=== PATIENT | female | born 1975 | race Caucasian/White ===

== ENCOUNTER → 2019-01-09 16:03 | Outpatient (CLI) | payer OTHER, SELFPAY ==
[2019-01-09 16:47] LABS: Absolute Neutrophil Count 2.5 X10^3/uL (2.0-7.7); Basophil# 0.01 X10^3/uL; Basophil% 0.2 % (0-1); Eosinophil# 0.45 X10^3/uL; Eosinophils% 9.3 % (0-5); Hematocrit 35.6 % (37-47); Hemoglobin 12.3 g/dl (12.0-15.0); Lymphocyte % 35.2 % (19-41); Mean Corp Hgb Conc 34.6 g/gl (32-36); Mean Corpuscular Hgb 28.5 pg (27.0-32.0); Mean Corpuscular Volume 82.4 fL (81-99); Mean Platelet Vol. 9.4 fl (6.2-12.0); Monocyte# 0.22 X10^3/uL; Monocyte% 4.6 % (0-10); Neutrophil # 2.45 X10^3/uL (2.7-7.7); Neutrophil % 50.7 % (47-70); Platelet Count 185 K/mm3 (150-450); RBC Distribution Width CV 13.1 % (11.6-14.6); RBC Distribution Width SD 39.3 fl (35.1-43.9); Red Blood Count 4.32 M/mm3 (4.2-5.4); White Blood Count 4.8 K/mm3 (4.4-11.0)
[2019-01-09 16:49] LABS: POSITIVE COUNT NO; POSITIVE DIFFERENTIAL NO; POSITIVE MORPHOLOGY NO
[2019-01-09 17:24] LABS: Anion Gap 8 (5-15); BUN 8 mg/dL (7-18); BUN/Creat Ratio 11.1 RATIO (10-20); Calcium,Total 9.3 mg/dL (8.5-10.1); Chloride 108 mmol/L (98-107); Creatinine, Serum 0.72 mg/dL (0.55-1.02); EST Glomerular Filtration Rate 93 mL/min (>60); Est Glom Filt Rate - Afr Amer 113 mL/min (>60); Glucose 89 mg/dL (74-106); Sodium Level 143 mmol/L (136-145); Thyroid Stim Hormone (TSH) 2.68 uIU/mL (0.358-3.74)
== END ==
PROVIDERS: Family Provider Family Medicine; PCP Family Medicine; Visit Provider Family Medicine
DX: I10 Essential (primary) hypertension (principal); F41.0 Panic disorder [episodic paroxysmal anxiety]
CPT/HCPCS: 36415; 80048; 84443; 85025

== ENCOUNTER → 2020-04-15 14:06 | Outpatient (CLI) | payer BC, SELFPAY ==
[2014-10-27 13:09] VITALS: BMI 25.8
[2020-04-15 18:05] LABS: Anion Gap 5 (5-15); BUN 9 mg/dL (7-18); BUN/Creat Ratio 12.8 RATIO (10-20); Calcium,Total 8.8 mg/dL (8.5-10.1); Chloride 106 mmol/L (98-107); EST Glomerular Filtration Rate 96 mL/min (>60); Est Glom Filt Rate - Afr Amer 116 mL/min (>60); Glucose 79 mg/dL (74-106); Potassium 3.2 mmol/L (3.5-5.1); Sodium Level 138 mmol/L (136-145); Thyroid Stim Hormone (TSH) 2.12 uIU/mL (0.358-3.74)
== END ==
PROVIDERS: PCP Family Medicine; Visit Provider Family Medicine
DX: I10 Essential (primary) hypertension (principal)
CPT/HCPCS: 36415; 80048; 84443

== ENCOUNTER → 2021-03-24 16:23 | Outpatient (CLI) | payer BC, SELFPAY | PROVIDERS: PCP Family Medicine; Visit Provider Physician Assistant Surgical | DX: U07.1 COVID-19 (principal) | CPT/HCPCS: 87635; U0005; U0003 ==

== ENCOUNTER → 2022-11-13 | Outpatient (CLI) | payer OTHER, SELFPAY ==
[2022-11-13 12:33] LABS: Absolute Lymphocyte Count 1.57 X10^3/uL (0.83-4.51); Absolute Neutrophil Count 2.6 X10^3/uL (2.0-7.7); Basophil# 0.03 X10^3/uL; Basophil% 0.6 % (0-1); Eosinophil# 0.31 X10^3/uL; Eosinophils% 6.6 % (0-5); Hematocrit 37.8 % (37-47); Hemoglobin 12.4 g/dL (12.0-15.0); Lymphocyte # 1.57 X10^3/ul (0.83-4.51); Lymphocyte % 33.5 % (19-41); Mean Corp Hgb Conc 32.8 g/dL (32-36); Mean Corpuscular Hgb 26.4 pg (27.0-32.0); Mean Corpuscular Volume 80.4 fL (81-99); Mean Platelet Vol. 9.9 fl (6.2-12.0); Monocyte# 0.19 X10^3/uL; Monocyte% 4.1 % (0-10); NRBC Flagged by Analyzer 0 % (0-5); Neutrophil # 2.58 X10^3/uL (2.7-7.7); Platelet Count 216 K/mm3 (150-450); RBC Distribution Width CV 13.6 % (11.6-14.6); RBC Distribution Width SD 39.6 fl (35.1-43.9); White Blood Count 4.7 K/mm3 (4.4-11.0)
[2022-11-13 13:00] LABS: Vitamin D,25 Hydroxy 43.8 ng/mL
[2022-11-13 13:15] LABS: ALB/GLOB Ratio 1.2 RATIO (0.9-2.4); AST(SGOT) 29 U/L (15-37); Alanine Aminotransfer ALT/SGPT 42 U/L (13-56); Albumin, Serum 3.9 g/dL (3.2-5.0); Alkaline Phosphatase 116 U/L (45-117); Anion Gap 5 (5-15); BUN 10 mg/dL (7-18); BUN/Creat Ratio 12.9 RATIO (10-20); Calcium,Total 9.2 mg/dL (8.5-10.1); Chloride 109 mmol/L (98-107); Creatinine, Serum 0.77 mg/dL (0.55-1.02); EST Glomerular Filtration Rate 84 mL/min (>60); Est Glom Filt Rate - Afr Amer 102 mL/min (>60); Globulin 3.3 g/dL (2.2-4.2); Glucose 92 mg/dL (74-106); Potassium 3.6 mmol/L (3.5-5.1); Protein, Total 7.2 g/dL (6.4-8.2); Sodium Level 141 mmol/L (136-145); T4 Free Direct 1.13 ng/dL (0.76-1.46); Thyroid Stim Hormone (TSH) 2.22 uIU/mL (0.358-3.74)
== END | disposition home or self-care (01) ==
LOC: BFHLAB 10:49
PROVIDERS: PCP Nurse Practitioner Family; Referring Provider Nurse Practitioner Family; Visit Provider Nurse Practitioner Family
DX: I10 Essential (primary) hypertension (principal); Z13.29 Encounter for screening for other suspected endocrine disorder; E55.9 Vitamin D deficiency, unspecified
CPT/HCPCS: 36415; 80053; 82306; 84439; 84443; 85025

== ENCOUNTER 2023-01-24 07:48 | Day surgery (SDC) | payer OTHER, SELFPAY ==
--- NOTE | 2023-01-17 10:48 | PCM.HP.BLA ---
History and Physical Date of Admission: 01/24/23 HPI: The patient is a 47 year old female presenting for pre-operative visit. She is scheduled for Hysteroscopy D&C nad polyp resection for thickened endometrium and endometrial polyp on 01/24/23. Procedure discussed along with risks, benefits and complications. Other alternatives discussed for management. Consent form signed? Yes. ? ? PAST MEDICAL HISTORY PAST MEDICAL HISTORY Diagnosis Date ? Congenital hiatus hernia 01/06/2003 ? Dr. [place], [place] ? Elevated blood pressure ? ? Essential hypertension, benign ? Esophageal reflux see hiatal hernia ? Hearing loss ? ? Mainly in Left Ear ? Other forms of migraine age mid 20's ? menstrual ? Panic disorder without agoraphobia see old records ? Anxiety state ? Simple or unspecified chronic serous otitis media 2001 ? see surgical history, tymp tube ? ? PAST SURGICAL HISTORY PAST SURGICAL HISTORY Procedure Laterality Date ? EXTRACTION, ERUPTED TOOTH OR EXPOSED ROOT (ELEVATION AND/OR FORCEPS REMOVAL) ? ? ? wisdom ? [facility], [place] ? RIGHT Myringotomy/tubes ? OOPHORECTOMY PARTIAL/TOTAL UNI/BI ? 11/11/2008 ? Right Oophorectomy Dr. Artis at [facility] ? PAST SURGICAL HISTORY OF ? 2001, same as below ? LEFT mastoidectomy (Dr. Zhong) ? TONSILLECTOMY & ADENOIDECTOMY <AGE 11 ? age 8 ? ? ? CURRENT MEDICATIONS Current Outpatient Medications Medication Sig Dispense Refill ? lisinopril (ZESTRIL) 5 mg tablet Take 5 mg by mouth once daily. ? ? ? mecobalamin (B12 ACTIVE ORAL) Take by mouth once daily. ? ? ? MAGNESIUM GLYCINATE ORAL Take 350 mg by mouth once daily. ? ? ? vronrna-qlvi-tzteh-oreg-capryl 100 mg-150 mg- 50 mg-150 mg cap Take 1 capsule by mouth. ProVitalize ? ? ? Cetirizine (ZYRTEC) 10 mg cap Take 1 capsule by mouth once daily. ? ? ? omeprazole (PRILOSEC) 20 mg capsule TAKE 1 CAPSULE BY MOUTH ONCE DAILY (30 45 MINUTES BEFORE A MEAL OR SNACK) ? ? ? cholecalciferol, vitamin D3, (VITAMIN D3 ORAL) Take by mouth. ? ? ? potassium (POTASSIMIN ORAL) Take by mouth every other day. ? ? ? SUMAtriptan (IMITREX) 100 mg tablet Take 1 tablet by mouth as needed. Take 1 tablet by mouth. one at once. May repeat in 2 hours as needed. 9 tablet 2 ? clonazePAM (KLONOPIN) 0.5 mg tablet Take 1 tablet by mouth at bedtime as needed. 30 tablet 0 ? No current facility-administered medications for this visit. ? ? ALLERGIES: Patient has no known allergies. ? PERSONAL HISTORY: SOCIAL HISTORY Social History ? Tobacco Use ? Smoking status: Never ? Smokeless tobacco: Never Vaping Use ? Vaping Use: Never used Substance Use Topics ? Alcohol use: No ? Drug use: No ? FAMILY HISTORY: FAMILY HISTORY FAMILY HISTORY Problem Relation Age of Onset ? other (ovarian cancer) Mother ? ? mid 40's ? other (Other) Father ? ? Unknown ? Headache Sister ? ? migraine ? No Known Problems Brother ? ? Breast Cancer Maternal Grandmother ? ? age late 60's ? Alcohol/Drug Maternal Grandfather ? ? No Known Problems Daughter ? ? No Known Problems Son ? ? Cervical Cancer Maternal Aunt ? ? Breast Cancer Maternal Aunt ? ? other (Brain Tumor) Maternal Aunt ? ? from this ? ? REVIEW OF SYMPTOMS: GENERAL: denies fevers or chills ENDOCRINOLOGY: has not been on steroids Cardiology : denies palpitations or chest pain Respiratory: denies SOB or cough Hematology: denies history of prolonged bleeding or easy bruising or VTE Allergy: Denies history of personal or family history of allergy to anesthesia ? ? ? PHYSICAL EXAMINATION: ? VITALS: Blood pressure 118/90, pulse 70, height 5' 5 (1.651 m), weight 194 lb (88 kg), last menstrual period 10/13/2022. ? GENERAL: The patient is well nourished, well hydrated in no acute distress. , The patient is oriented to time, place, and person. NECK: Supple. No lynphadenopathy, normal thyroid, no thyromegaly. LUNGS: Clear to auscultation bilaterally. no wheezes, rhonchi or rales HEART: Regular rate and rhythm, Normal heart sounds, and No murmurs or gallops ? Pelvic US 01/07/23 Normal appearing retroverted uterus that measures 75 mm x 37 mm x 44 mm. The central endometrial complex measures 4.6 mm in combined thickness. Endometrial ?pathology cannot be excluded. There is a possible fundal, endometrial polyp noted: Polyp(s): Size 6 mm x 2 mm x 6 mm. Mean 4.7 mm. Broad-based polyp. Fundal The right ovary is surgically absent. There is a left ovarian cyst present. This cyst measures 1.1 cm in size and is mostly simple in appearance, with one avascular solid component/projection that is ?less than 3 mm. There is no free fluid visualized in the peritoneal cavity. ? IMPRESSION: Thickened endometrium, endometrial polyp ? PLAN: The risks/benefits/alternatives and personal involved for the planned hysteroscopy D&C with poilyp resection were reviewed with the patient. Her questions were answered to her satisfaction and she desires to proceed. Consent was signed. I reviewed with her postop instructions and expectations. ? ? I have reviewed and updated past medical and surgical history, medications and allergies Assessment & Plan Assessment/Plan (1) Abnormal uterine bleeding (AUB): (2) Endometrial thickening on ultrasound: (3) Endometrial polyp:
[2023-01-24] VITALS (7 sets, daily range): BP systolic 123–142; BP diastolic 68–79; PULSE 66–80; RESP 16–18; TEMP 35.9–36.8; O2SAT 99–100; BMI 31.3
[2023-01-24 08:41] LABS: Internal QC Validated? YES +Cl - CLEAR BKGD; Pregnancy, Urine Negative Negative
[2023-01-24] MEDS: Acetaminophen 500 MG Tablet 1000 MG PO (08:47)
[2023-01-24] MEDS: Lactated Ringers 1,000 ML 15 ML IV (08:47)
[2023-01-24] MEDS: Ketorolac 30 MG/ML Syringe IV (08:47)
--- NOTE | 2023-01-24 09:45 | EMB_PTH ---
PATIENT: JUNE BECERRA LOC: [facility] U#:[id number] AGE/SX: 47/F ROOM: RE01/24/[address]: Dr. Marissa Burch MD : 1975 BED: DIS: 01/24/2023 SPEC #: [id number] RECD: 01/24/23 15:36 STATUS: SHANIQUA RERosalio #: [id number] JONNY: 01/24/23 09:[address]: Marissa Burch DEPT: SURGICAL PATHOLOGY RECD BY: Terri Ferris ENTERED: 01/25/23 08:40 SP TYPE: ENDOM BX/C OT DR: Farheen Loyola, [place] Tissues: Endometrium, NOS Procedures: Surgery Specimen Level IV HEADER OPERATION: Hysteroscopy, D & C Symphion PRE-OP DIAGNOSIS: Abnormal uterine bleeding, thickened endometrium endometrial polyp TISSUE SUBMITTED: Endometrial curettings MICROSCOPIC DIAGNOSIS Endometrial curettings: Proliferative endometrium. Fragments of myometrium. SJ:hesham 01/28/2023 MICROSCOPIC DESCRIPTION Slides are reviewed. GROSS DESCRIPTION Received in fixative is one container labeled with the patient's name and designated endometrial curettings. The specimen consists of multiple irregular fragments of light cooper tissue measuring in aggregate 3.0 x 1.5 x 0.2cms. The specimen is totally submitted in one cassette. / AM 01/25/2023 TC:4 CPT: 93737
--- NOTE | 2023-01-24 10:53 | OP.PCM_ITS ---
Problems Associated Problem List Diagnoses (1) Endometrial thickening on ultrasound: (2) Abnormal uterine bleeding (AUB): (3) Endometrial polyp: Report of Operation Date of Procedure: 01/24/23 Pre-Operative Diagnosis: aub, endometrial polyp, thickened endometrium on US Post-Operative Diagnosis: same Surgery/Procedure Performed:: hysteroscopy D&C with polyp resection Surgeon: Marissa Burch grocery supervisor: None Type of Anesthesia: MAC/Supplemental/Local Anesthesiologist: Leonides Shine Special Medications: none Specimen's removed: endometrial curettings Drains: none Grafts/Implants Used: none Complications none Admit VTE Documentation VTE Present on Admission: No VTE Mechan Device Prophylaxis: SCD's VTE Pharm Prophylaxis ordered?: No Reason prophylaxis not ordered:: Procedure Not Indicated
--- NOTE | 2023-01-24 10:53 | DCINST_ITS ---
Discharge Instructions Diet Discharge Diet: No restrictions Activity May resume sexual activity in: 1 week Lifting Restrictions: none Dressing / Incision Call your doctor if your incision/area has: Sudden Increased Bleeding and Foul Smelling Discharge Call your doctor if you observe: Fever of 101 or Higher and Using more than 1 pad per hour (for 2 hrs in a row) Follow Up Care Please Follow Up With: Marissa Burch MD When: 2-4 weeks or as needed. Call [phone] to make an appointment or with any concerns. Test Results: Test results from this visit will be discussed in further detail at your follow- up appointment, if applicable. Discharge Plan Admission Primary Reason for Your Visit: Dilation and curettage Attending Provider: Marissa Burch Primary Care Provider: Farheen Loyola Discharge Orders/Prescriptions Prescriptions: No Action sumatriptan succinate [Imitrex] 100 MG tablet 100 mg PO .X1 PRN clonazepam 0.5 MG tablet 0.5 mg PO QHS PRN PRN (Reason: Anxiety) lisinopril 10 MG tablet 20 mg PO DAILY omeprazole 20 mg capsule,delayed release(DR/EC) 20 mg PO DAILY Referrals / Follow Up: Farheen Loyola, [facility] [Primary Care Provider] - Disposition Disposition (needs filled in before D/C Order can be placed): Home, Self Care
--- NOTE | 2023-01-24 10:53 | PCM.OPRPT ---
Problems Associated Problem List Diagnoses (1) Endometrial thickening on ultrasound: (2) Abnormal uterine bleeding (AUB): (3) Endometrial polyp: Report of Operation Date of Procedure: 01/24/23 Pre-Operative Diagnosis: aub, endometrial polyp, thickened endometrium on US Post-Operative Diagnosis: same Surgery/Procedure Performed:: hysteroscopy D&C with polyp resection Description of Surgical Findings:: Normal cervix and vagina, lush endometrium, no discrete uterine cavity pathology Surgeon: Marissa Burch radio repairer: None Type of Anesthesia: MAC/Supplemental/Local Anesthesiologist: Leonides Shine Special Medications: none Specimen's removed: endometrial curettings Drains: none Estimated Blood Loss (mL): 10 Fluids Replaced: 400 Description of Procedure: The patient was taken to the OR where she was prepped and draped in dorsal lithotomy position. The weighted speculum was placed in the vagina and the anterior lip of the cervix was grasped with a single-tooth tenaculum. A paracervical block was administered with 1% lidocaine with 1-100,000 epinephrine solution. The cervix was dilated serially with Hegar dilators. The Symphion hysteroscope was placed into the uterine cavity and the above findings were noted. Bilateral tubal ostia were identified. The resection device was inserted and a visual sharp curettage was done of the uterine cavity. The instruments were removed from the vagina. The specimen was handed off and sent to pathology. All sponge and needle counts were correct. Vaginal sweep was performed by me. The patient was awakened and taken to the recovery room in stable condition. Calculated hysteroscopic fluid deficit 500 cc of normal saline Findings: Endometrial cavity: Lush endometrium, no discrete polyps or fibroid Cervix: Normal Vagina: Normal Grafts/Implants Used: none Procedure Start Time: 11:01 Procedure Stop Time: 11:09 Complications none Admit VTE Documentation VTE Present on Admission: No VTE Mechan Device Prophylaxis: SCD's VTE Pharm Prophylaxis ordered?: No Reason prophylaxis not ordered:: Procedure Not Indicated
[2023-01-24] MEDS: Lidocaine 1% /Epi 1:100 (20ml) 20 ML Vial (11:01)
== END 2023-01-24 12:27 | disposition home or self-care (01) ==
LOC: SDC 08:09 → AC 08:10
PROVIDERS: PCP Nurse Practitioner Family; Referring Provider Obstetrics & Gynecology; Visit Provider Obstetrics & Gynecology
PROC: 0UB98ZZ Excision of Uterus, Via Natural or Artificial Opening Endoscopic (ICD-10-PCS; CPT 58558; principal; 2023-01-24 09:30)
DX: N84.0 Polyp of corpus uteri (principal); N93.9 Abnormal uterine and vaginal bleeding, unspecified; I10 Essential (primary) hypertension; F41.1 Generalized anxiety disorder; G43.909 Migraine, unspecified, not intractable, without status migrainosus; R93.89 Abnormal findings on diagnostic imaging of other specified body structures
CPT/HCPCS: 58558; 00952; 81025; 88305; J7120; J2405

== ENCOUNTER 2025-01-08 08:44 | Day surgery (SDC) | payer OTHER, SELFPAY ==
[2025-01-08] VITALS (9 sets, daily range): BP systolic 84–104; BP diastolic 50–72; PULSE 60–74; RESP 16–20; TEMP 36.4–36.6; O2SAT 97–100; BMI 30.6
[2025-01-08] MEDS: Lactated Ringers 1,000 ML 15 ML IV (09:00)
--- NOTE | 2025-01-08 09:25 | PCM.PRE.AN2 ---
ASA Classification* ASA Classification ASA Classification: 2 Assessment & Plan Anesthesia* Anesthesia Assessment Anesthesia Assessment: Discussed sedation and/or anesthesia options, risks, benefits, and alternatives with patient/parents/legal guardian/POA. Questions invited. The patient/parents/legal guardian/POA seems to understand and agrees to proceed with anesthesia plan. Reviewed the physical assessment, medical history, allergy history and patient home medications list prior to surgery/procedure/anesthetic and documented any changes. Performed airway and anesthesia risk assessments. Anesthesia Type Anesthesia Type: MAC History Source History Obtained from:: Patient and Chart Anesthesia Focused Assessment* Temperature: 97.5 F Pulse Rate: 74 Blood Pressure: 104/55 Respiratory Rate: 18 Pulse Ox: 100 Oxygen Delivery Method: Room Air Airway Assessment Mouth opens: >3 cm Mallampati Score: III Teeth Condition: Caps/Crowns (Patient has a couple crowns. They are tight.) and Missing (Patient several missing teeth. Rest of the teeth are tight.) Neck Range of motion (ROM): Full ROM Labs Anesthesia Preop lab: CBC WBC 4.7 K/mm3 (4.4-11.0) 11/13/22 10:51 11/13/22 RBC 4.70 M/mm3 (4.2-5.4) 11/13/22 10:11/13/22 Hgb 12.4 g/dL (12.0-15.0) 11/13/22 10:11/13/22 Hct 37.8 % (37-47) 11/13/22 10:11/13/22 Plt Count 216 K/mm3 (150-450) 11/13/22 10:11/13/22 CHEMISTRY Potassium 3.6 mmol/L (3.5-5.1) 11/13/22 10:11/13/22 Sodium 141 mmol/L (136-145) 11/13/22 10:11/13/22 BUN 10 mg/dL (7-18) 11/13/22 10:51 11/13/22 Creatinine 0.77 mg/dL (0.55-1.02) 11/13/22 10:11/13/22 Glucose 92 mg/dL (74-106) 11/13/22 10:51 11/13/22 POC Glucose 78 mg/dL (70-110) 10/27/14 13:50 10/27/14 TSH 2.22 uIU/mL (0.358-3.74) 11/13/22 10:51 11/13/22 COAG PT 14.1 SECONDS (11.7-14.9) 10/27/14 13:44 10/27/14 Urine Test Negative Negative 01/24/23 08:29 01/24/23 Pre-Assessment Diagnosis/Proposed Procedure Planned Operative Procedure(s): COLONOSCOPY Anesthesia History 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 When Was Last Pacemaker Check QUESTION #4 FULL TEXT: You/Your Family Experience fever (hyperthermia) with Anesthesia Last Oral Intake Last Oral intake: Last Oral Intake NPO since 23:30 01/08/25 09:05 Meds taken in AM with sips of water? Meds patient instructed to take am of surgery Any additional information?: Yes Meds taken in AM with sips of water?: Yes Meds patient instructed to take am of surgery: Omeprazole PONV PONV - shuttleless loom weaver: PONV - shuttleless loom weaver Female Yes 01/04/25 11:06 HX of Motion Sickness No 01/04/25 11:06 HX of N/V After Surgery No 01/04/25 11:06 Non-Smoker Yes 01/04/25 11:06 Duration of Surgery greater No 01/04/25 11:06 than 60 minutes Number of Risk Factors 2 01/04/25 11:06 PONV Score Moderate Risk 01/04/25 11:06 Height & Weight Height & Weight: Anesthesia: Height & Weight Height 5 ft 6 in 01/08/25 09:05 Weight: 86 kg 01/08/25 09:05 Body Mass Index (BMI) 30.6 01/08/25 09:05 Respiratory Assessment Respiratory Assessment - shuttleless loom weaver: Respiratory Tract Infection Hx - shuttleless loom weaver Hx Respiratory Tract Infection No 01/04/25 11:06 STOP Sleep Apnea STOP Sleep Apnea - shuttleless loom weaver: STOP Sleep Apnea - shuttleless loom weaver Hx Hypertension Yes: PER PT, CONTROLLED ON 01/04/25 11:06 MEDS Hx Sleep Apnea No 01/04/25 11:06 CPAP BIPAP Do you snore loudly (louder No 01/04/25 11:06 than talking or can be heard Do you often feel tired/ No 01/04/25 11:06 fatigued/ sleepy during daytime? Has anyone observed you stop No 01/04/25 11:06 breathing during sleep? STOP Results Negative 01/04/25 11:06 QUESTION #5 FULL TEXT : Do you snore loudly (louder than talking or can be heard through closed doors)? 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 Specify any problems Hx of Preganancy in last 3 No 01/04/25 11:06 Months Nurse Filling Out Transfusion MGRIFFITH 01/04/25 11:06 & Questions: Date: 01/04/25 01/04/25 11:06 Time: 11:08 01/04/25 11:06 Patient unable to answer at this time (ie. confused, unrespo /Reproduction History /Reproductive History - shuttleless loom weaver: /Reproductive Hx- shuttleless loom weaver Hx Now No 01/04/25 11:06 Gestational Age (in weeks): EDC: Hx Hx Para Hx Section SAB No 01/04/25 11:06 Active Medications Active Medications: Current Medications Generic Name Dose Route Start Last Admin Trade Name Freq PRN Reason Stop Dose Admin Lactated Ringer's 1,000 mls @ 15 mls/hr 01/08/25 09:00 01/08/25 09:00 IV 15 mls/hr .Q48H RAJANI Administration PFSH Medical History Loss of hearing Post-menopausal History of ulceration Gastric reflux Non-smoker Anxiety Migraine headache History of hiatal hernia GERD (gastroesophageal reflux disease) Leg cramps Endometrial polyp COVID-19 Hypertension Home Medications ?Medication ?Instructions ?Recorded ?Last Taken ?Type clonazepam 0.5 mg tablet 0.5 mg PO QHS PRN PRN Anxiety 10/27/14 10/26/14 History lisinopril 10 mg tablet 20 mg PO DAILY 10/27/14 01/07/25 History sumatriptan succinate 100 mg 100 mg PO .X1 PRN 10/27/14 10/27/14 History tablet (Imitrex) omeprazole 20 mg capsule,delayed 20 mg PO DAILY 01/17/23 01/08/25 History release berberine chloride 500 mg capsule 500 mg PO DAILY 01/04/25 01/06/25 History cholecalciferol (vitamin D3) 125 125 mcg PO DAILY 01/04/25 01/07/25 History mcg (5,000 unit) tablet (Vitamin D3) cyanocobalamin (B12)-cobamamide 1 bob sublingual DAILY 01/04/25 01/07/25 History 5,000 mcg-100 mcg sublingual lozenge (B12) hydrochlorothiazide 12.5 mg tablet 12.5 mg PO QHS 01/04/25 01/07/25 History potassium chloride 20 mEq oral 20 meq PO DAILY 01/04/25 01/05/25 History packet (Klor-Con) vitamin K2 100 mcg capsule 100 mcg PO DAILY 01/04/25 01/07/25 History zinc acetate 50 mg (zinc) capsule 50 mg PO DAILY 01/04/25 01/07/25 History Allergy/AdvReac Type Severity Reaction Status Date / Time No Known Allergies Allergy Verified 01/08/25 09:04 Family History Other Cancer Surgical History History of myringotomy History of oophorectomy H/O mastoidectomy History of tonsillectomy and adenoidectomy Social History Smoking Status: Never smoker Review of Systems (Anesthesia) ROS Narrative System reviewed and no additional complaints, except as documented.
--- NOTE | 2025-01-08 10:00 | H&P.OPEN ---
HPI - General HPI Narrative JUNE BECERRA, is a 49 F who presents for screening colonoscopy. Patient has never had a colonoscopy in the past. She denies abdominal pain or blood in the stool. She has no family history of colon cancer. [facility] Medical History Loss of hearing Post-menopausal History of ulceration Gastric reflux Non-smoker Anxiety Migraine headache History of hiatal hernia GERD (gastroesophageal reflux disease) Leg cramps Endometrial polyp COVID-19 Hypertension Home Medications ?Medication ?Instructions ?Recorded ?Last Taken ?Type clonazepam 0.5 mg tablet 0.5 mg PO QHS PRN PRN Anxiety 10/27/14 10/26/14 History lisinopril 10 mg tablet 20 mg PO DAILY 10/27/14 01/07/25 History sumatriptan succinate 100 mg 100 mg PO .X1 PRN 10/27/14 10/27/14 History tablet (Imitrex) omeprazole 20 mg capsule,delayed 20 mg PO DAILY 01/17/23 01/08/25 History release berberine chloride 500 mg capsule 500 mg PO DAILY 01/04/25 01/06/25 History cholecalciferol (vitamin D3) 125 125 mcg PO DAILY 01/04/25 01/07/25 History mcg (5,000 unit) tablet (Vitamin D3) cyanocobalamin (B12)-cobamamide 1 bob sublingual DAILY 01/04/25 01/07/25 History 5,000 mcg-100 mcg sublingual lozenge (B12) hydrochlorothiazide 12.5 mg tablet 12.5 mg PO QHS 01/04/25 01/07/25 History potassium chloride 20 mEq oral 20 meq PO DAILY 01/04/25 01/05/25 History packet (Klor-Con) vitamin K2 100 mcg capsule 100 mcg PO DAILY 01/04/25 01/07/25 History zinc acetate 50 mg (zinc) capsule 50 mg PO DAILY 01/04/25 01/07/25 History Allergy/AdvReac Type Severity Reaction Status Date / Time No Known Allergies Allergy Verified 01/08/25 09:04 Family History Other Cancer Surgical History History of myringotomy History of oophorectomy H/O mastoidectomy History of tonsillectomy and adenoidectomy Social History Smoking Status: Never smoker Past Medical/Surgical History Planned Operation Planned Operative Procedure(s): COLONOSCOPY Previous Hospitalizations/Surgeries HX Hospitalizations: No Any Problems With Anesthesia: No You/Your Family Experience Fever (Hyperthermia) With Anes: No Cholinesterase deficiency: No Cardiovascular Hx of Irregular Heartbeat and/or Afib: No Hx Heart Attack: No Hx Congestive Heart Failure: No Hx Hypertension: Yes (PER PT, CONTROLLED ON MEDS) Hx Pacemaker: No Respiratory Hx Chronic Obstructive Pulmonary Disease (COPD): No Hx Asthma: No Hx Emphysema: No Hx Sleep Apnea: No Hx Respiratory Tract Infection/Cold (presently): No Do You Snore Loudly (louder than talking or can be heard): No Do You Often Feel Tired/ Fatigued/ Sleepy Dring Daytime?: No Has Anyone Observed You Stop Breathing During Sleep?: No Result (for STOP score): Negative Smoking Status: Never smoker Gastrointestinal Hx Ulcer: No Difficulty Chewing/Swallowing: No Neurological Hx Seizures: No Hx Head/Neck Injury: No Hx Headaches: No Hx Back Injury/Pain: No Does patient have nerve stimulator: No Reproduction : No Psycho/Social Hx Anxiety: Yes Miscellaneous Recent Exposure to Contagious Disease: No Allergies No Known Allergies Allergy (Verified 01/08/25 09:04) Discharge Is Pt Admitted From a Custodial, or a Longterm: No Who Could Help: After D/C, Where Do you Plan to Go: Return Home Vital Signs Vital Signs Vital Signs: 01/08/25 09:05 01/08/25 09:05 01/08/25 09:30 Temperature 97.5 F L 97.5 F L Temperature Source Temporal Pulse Rate 74 74 Respiratory Rate 18 18 Respiratory Pattern Normal Blood Pressure 104/55 L 104/55 L Blood Pressure Mean 71 Blood Pressure Source Monitor Blood Pressure Position Semi-Fowlers Blood Pressure Location Left Arm Pulse Ox 100 100 Oxygen Delivery Method Room Air Room Air Weight Weight: 189 lb 9.561 oz Body Mass Index (BMI) 30.6 Physical Exam Const alert and oriented x3 HEENT normocephalic Eyes PERRL Resp normal respiratory effort and normal air movement Cardio regular rate and regular rhythm GI soft to palpation, non-tender and non-distended Extremity normal to inspection Assessment & Plan Assessment/Plan (1) Screen for colon cancer: PLAN: I explained endoscopy in detail to the patient. I explained the risks including but not limited to stroke or heart attack with anesthesia, perforation of the GI tract, bleeding, infection. I explained that any of these could necessitate further emergency surgery. The patient understands and all questions were answered sufficiently. The patient wishes to proceed with procedure. Chapo Summers MD Pager: [facility] [address] [place] [address], [address] [place] [address] Office: Surgery Risks - Colonoscopy Risks Include but are not Limited To: Risks include but are not limited to: Bleeding, perforation requiring further surgery, inability to complete colonoscopy requiring barium enema.
--- NOTE | 2025-01-08 10:24 | OP.COLON_ITS ---
Patient Name: Tammy Dang Procedure Date: 01/08/2025 10:02 AM Date of : 1975 Age: 49 Procedure: Colonoscopy Indications: Screening for colorectal malignant neoplasm Providers: Chapo Summers MD Referring MD: Yvonne Cárdenas Medicines: Propofol per Anesthesia Patient Profile: This is a 49 year old female. Refer to note in patient chart for documentation of history and physical. Last Colonoscopy: none. The patient's first colonoscopy is today. Complications: No immediate complications. Procedure: Pre-Anesthesia Assessment: - Prior to the procedure, a History and Physical was performed, and patient medications and allergies were reviewed. The patient's tolerance of previous anesthesia was also reviewed. The risks and benefits of the procedure and the sedation options and risks were discussed with the patient. All questions were answered, and informed consent was obtained. Prior Anticoagulants: The patient has taken no anticoagulant or antiplatelet agents. ASA Grade Assessment: II - A patient with mild systemic disease. After reviewing the risks and benefits, the patient was deemed in satisfactory condition to undergo the procedure. After I obtained informed consent, the scope was passed under direct vision. Throughout the procedure, the patient's blood pressure, pulse, and oxygen saturations were monitored continuously. The colonoscope was introduced through the anus and advanced to the cecum, identified by appendiceal orifice and ileocecal valve. The colonoscopy was performed without difficulty. The patient tolerated the procedure well. The quality of the bowel preparation was good. The ileocecal valve, appendiceal orifice, and rectum were photographed. Scope In: 10:11:30 AM Scope Withdrawal Time 0 hours 6 minutes 14 seconds Scope Out: 10:21:26 AM Total Procedure Duration Time 0 hours 9 minutes 56 seconds Findings: The entire examined colon appeared normal on direct and retroflexion views. Impression: - The entire examined colon is normal on direct and retroflexion views. - No specimens collected. Recommendation: - Discharge patient to home. - Resume previous diet. - Continue present medications. - Repeat colonoscopy in 10 years for screening purposes. Procedure Code(s): --- Professional --- 18894, Colonoscopy, flexible; diagnostic, including collection of specimen(s) by brushing or washing, when performed (separate procedure) Diagnosis Code(s): --- Professional --- Z12.11, Encounter for screening for malignant neoplasm of colon CPT copyright 2021 [employer]. All rights reserved. The codes documented in this report are preliminary and upon inpatient coder review may be revised to meet current compliance requirements. Chapo Summers MD 01/08/2025 10:23:46 AM This report has been signed electronically. Number of Addenda: 0 Note Initiated On: 01/08/2025 10:02 AM
--- NOTE | 2025-01-08 10:24 | OP.CCLET_ITS ---
01/08/2025 Yvonne Cárdenas Re : Colonoscopy procedure for Tammy Dang Dear Nir This procedure was performed on Wednesday, January 08, 2025. My impressions and recommendations are as follows: Impressions : - The entire examined colon is normal on direct and retroflexion views. - No specimens collected. Recommendations : - Discharge patient to home. - Resume previous diet. - Continue present medications. - Repeat colonoscopy in 10 years for screening purposes. My findings are described in the full procedure note, which is enclosed. If I can be of further assistance, please feel free to contact me at Doctor phone number(s): , Work: . Sincerely, Chapo Summers MD 01/08/2025 10:23:46 AM This report has been signed electronically.
--- NOTE | 2025-01-08 10:27 | PCM.POST.ANE ---
Anesthesia: Postop Eval I Current Vital Signs Temperature: 97.8 F Pulse Rate: 73 Blood Pressure: 99/72 Respiratory Rate: 20 Pulse Ox: 99 Assessment Airway patent: Yes Spontaneous unlabored respirations: Yes nausea: No Vomiting: No Anesthesia Complication: No Fluid Hydration Crystalloid volume administer (ml): 500 Total IV fluid infused: 500 Progress Note Anesthesia document: Postop Eval 1 completed: Yes
--- NOTE | 2025-01-08 10:53 | POSTOPAN2_ITS ---
Anesthesia Postop Eval I Sum Postop Eval Completion status Anesthesia document: Postop Eval 1 completed: Yes Anesthesia Postop Eval I Summary Anesthesia Postop Eval I Summary: Anesthesia Postop Eval I: Assessment Summary Airway patent Yes 01/08/25 10:27 [email or web address] Spontaneous unlabored Yes 01/08/25 10:27 [email or web address] respirations Mental status nausea No 01/08/25 10:27 [email or web address] Vomiting No 01/08/25 10:27 [email or web address] Anesthesia Postop Eval I: Fluid Summary Crystalloid volume administer 500 01/08/25 10:27 [email or web address] (ml) Colloids volume administered ( ml) Blood Product volume administered (ml) Total IV fluid infused 500 01/08/25 10:27 [email or web address] Anesthesia Postop Eval I: Summary Notes Anesthesia Complication No 01/08/25 10:27 [email or web address] Anesthesia Complication Comment: Post-operative progress note Anesthesia: Postop Eval II Evaluation Mental status: Awake Pain Level: 0 nausea: No Vomiting: No
--- NOTE | 2025-01-08 10:53 | PCM.POSTANE2 ---
Anesthesia Postop Eval I Sum Postop Eval Completion status Anesthesia document: Postop Eval 1 completed: Yes Anesthesia Postop Eval I Summary Anesthesia Postop Eval I Summary: Anesthesia Postop Eval I: Assessment Summary Airway patent Yes 01/08/25 10:27 [email or web address] Spontaneous unlabored Yes 01/08/25 10:27 [email or web address] [email or web address] respirations Mental status nausea No 01/08/25 10:27 [email or web address] [email or web address] Vomiting No 01/08/25 10:27 [email or web address] [email or web address] Anesthesia Postop Eval I: Fluid Summary Crystalloid volume administer 500 01/08/25 10:27 [email or web address] (ml) Colloids volume administered ( ml) Blood Product volume administered (ml) Total IV fluid infused 500 01/08/25 10:27 [email or web address] [email or web address] Anesthesia Postop Eval I: Summary Notes Anesthesia Complication No 01/08/25 10:27 [email or web address] [email or web address] Anesthesia Complication Comment: Post-operative progress note Anesthesia: Postop Eval II Evaluation Mental status: Awake Pain Level: 0 nausea: No Vomiting: No
--- OUTSIDE RECORDS SUMMARY | 2025-01-08 12:27 | XMS RPT_ITS | CCD ---
Author Organization [facility] Care Team Providers Care Rooming House Keeper Name Role Phone Chapo Artis Unavailable Unavailable Shayne ANGULO, Harry Florez Primary Care Provider Shayne ANGULO, Harry Florez Primary Care Provider TIANNA KO Referring Unavailable SHAYNE, HARRY FLOREZ Primary Care Unavailable TIANNA KO Referring Unavailable SHAYNE, HARRY FLOREZ Primary Care Unavailable TIANNA KO Attending Unavailable TIANNA KO Referring Unavailable SHAYNE, HARRY FLOREZ Primary Care Unavailable TIANNA KO Referring Unavailable SHAYNE, HARRY FLOREZ Primary Care Unavailable Chapo Summers Attending Unavailable Farheen Loyola Referring Unavailable Nir, Farheen Primary Care Unavailable Nir SEQUENCING MACHINE OPERATOR-C, Farheen Primary Care Provider [phone] Nir SEQUENCING MACHINE OPERATOR-C, Farheen Referring Provider [phone] Dr. Chapo Summers MD Attending Provider Dr. Chapo Summers MD Other Provider [phone] Medications Current Medications Medication Drug Class(es) Dates Sig (Normalized) Sig (Original) ASHWAGANDHA EXTRACT ORAL (3 sources) ASHWAGANDHA EXTR ACT ORAL Take by mouth once daily. 0 Active Berberine Chloride 500 mg capsule (1 source) Start: 01-05-20 25 take 1 capsule by mouth once daily Berberine Chloride 500 mg capsule Active 500 mg PO DAILY January 04, 2025 12:00am cetirizine hydrochloride 10 mg oral capsule (5 sources) Histamine-1 Receptor Antagonist take 1 capsule by mouth once daily Cetirizine (ZYRTEC) 10 mg cap Take 1 capsule by mouth once daily. 0 Active Comment on above: Take 1 capsule by [facility] once daily. cholecalciferol 0.125 mg oral tablet (1 source) Vitamin D Start: 01-05-20 25 take 1 tablet by mouth once daily Cholecalciferol (Vitamin D3) (Vitamin D3) 125 mcg (5,000 unit) tablet Active 125 ug PO DAILY January 04, 2025 12:00am cholecalciferol, vitamin D3, (VITAMIN D3 ORAL) (10 sources) cholecalciferol, vitamin D3, (VITAMIN D3 ORAL) Take by mouth. 0 Active Comment on above: Take by mouth. clonazePAM 0.5 mg oral tablet (12 sources) Benzodiazepine Start: 10-28-19 take 1 tablet by mouth at bedtime as needed for anxiety Clonazepam 0.5 MG tablet Active 0.5 mg PO AT BEDTIME NEEDED as needed for Anxiety October 27, 2014 12:00am Comment on above: Take 1 tablet by bolivar at bedtime as needed. cobamamide 0.1 mg / vitamin b12 5 mg sublingual tablet (1 source) Vitamin B12 Start: 01-05-20 Cyanocobalamin-Cobamam nima (B12) 5,000-100 mcg lozenge Active 1 NMA SL DAILY January 04, 2025 12:00am hydroCHLOROthiazide 12.5 mg oral tablet (1 source) Thiazide Diuretic Start: 01-05-20 take 1 tablet by mouth at bedtime Hydrochlorothiazide 12.5 mg tablet Active 12.5 mg PO AT BEDTIME January 04, 2025 12:00am lisinopril 20 mg oral tablet (9 sources) Angiotensin Converting Enzyme Inhibitor Start: 10-07-19 take 5 mg by mouth once daily lisinopril (ZESTRIL) 20 mg tablet Take 5 mg by mouth once daily. 0 10/06/2022 Active Start: 10-06-2022 take 1 tablet by bolivar once daily lisinopril (ZESTRIL) 5 mg tablet Take 5 mg by mouth once daily. 0 10/06/2022 Active Start: 01-17-2016 End: 12-28-2022 take 1 tablet by mouth once daily lisinopril (PRINIVIL) 10 mg tablet Take 1 tablet by mouth once daily. 90 tablet 3 01/17/2016 12/28/2022 Discontinued (Course of therapy completed) Start: 10-27-2014 take 2 tablets by mo [facility] once daily Lisinopril 10 MG tablet Active 20 mg PO DAILY October 27, 2014 12:00am Start: 10-27-2014 take 10 mg by mouth twice elizabeth y Lisinopril Active 10 MG PO TWICE A DAY October 27, 2014 12:00am Comment on above: Take 1 tablet by bolivar th once daily. Take 5 mg by mouth o nce daily. Magnesium glycinate (5 sources) take 350 mg by mouth once daily MAGNESIUM GLYCINATE ORAL Take 350 mg by mouth once daily. 0 Active Comment on above: Take 350 mg by mouth once daily. mecobalamin (5 sources) mecobalamin (B12 ACTIVE ORAL) Take by mouth once daily. 0 Active Comment on above: Take by mouth once d aily. omeprazole 20 mg delayed release oral capsule (11 sources) Proton Pump Inhibitor Start: 0 take 1 capsule by mouth once daily Omeprazole 20 mg capsule,delayed release(DR/EC) Active 20 mg PO DAILY January 17, 2023 12:00am Comment on above: TAKE 1 CAPSULE BY MO UT ONCE DAILY (30 45 MINUTES BEFORE A MEAL OR SNACK) Potassium (10 sources) potassium (POTASSIMIN ORAL) Take by mouth every other day. 0 Active potassium (POTAS JENNIFER ORAL) Take by mouth. 0 Active Comment on above: Take by mouth. Take by mouth every other day. potassium chloride 20 meq powder for oral solution (1 source) Start: 5 take 20 mEq by mouth once daily Potassium Chloride (Klor-Con) 20 mEq packet Active 20 meq PO DAILY January 04, 2025 12:00am raNITIdine 150 mg oral tablet (1 source) Histamine-2 Receptor Antagonist Start: 5 take 1 tablet by mouth twice daily Ranitidine (Zantac) 150 MG tablet Active 150 MG PO TWICE A DAY October 27, 2014 12:00am SUMAtriptan 100 mg oral tablet (12 sources) Serotonin-1b and Serotonin-1d Receptor Agonist Start: 5 Sumatriptan Succinate (Imitrex) 100 MG tablet Active 100 mg PO .X1 PRN October 27, 2014 12:00am Comment on above: Take 1 tablet by bolivar th as needed. Take 1 tablet by mouth. one at once. May repeat in 2 hours as needed. vitamin k2 0.1 mg oral capsule (1 source) Start: 5 Vitamin K2 100 mcg capsule Active 100 ug PO DAILY January 04, 2025 12:00am VITAMIN K2 ORAL (3 sources) VITAMIN K2 ORAL Take by mouth once daily. 0 Active zinc acetate 50 mg oral capsule (1 source) Start: take 1 capsule by mouth once daily Zinc Acetate 50 mg (zinc) capsule Active 50 mg PO DAILY January 04, 2025 12:00am Completed/Discontinued Medications Medication Drug Class(es) Dates Sig (Normalized) Sig (Original) ullyojt-ixde-qgluw- oreg-capryl 100 mg-150 mg- 50 mg-150 mg cap (3 sources) End: 01-17-2024 bmidigf-zfve-cqfng-o reg-capryl 100 mg-150 mg- 50 mg-150 mg cap Take 1 capsule by mouth. ProVitalize 0 01/17/2024 Discontinued (Course of therapy completed) jidpyor-yshq-ewj lw-krgw-vrqxgv 100 mg-150 mg- 50 mg-150 mg cap Take 1 capsule by mouth. ProVitalize 0 Active Comment on above: Take 1 capsule by mo uth. ProVitalize Problems Active Problems Problem Classification Problem Date Documented Date Episodic/Chronic Anxiety disorders (20 sources) Anxiety state; Translations: [Generalized anxiety disorder] Onset: 09-26-2006 12-04-2010 Chronic Digestive congenital anomalies (10 sources) Congenital hiatus hernia; Translations: [Congenital hiatus hernia] 12-04-2010 Chronic Disorders of lipid metabolism (10 sources) Hyperlipidemia; Translations: [Hyperlipidemia, unspecified] Onset: 03-08-2008 12-04-2010 Chronic Esophageal disorders (10 sources) Gastroesophageal reflux disease; Translations: [Gastro-esophageal reflux disease without esophagitis] 12-04-2010 Chronic Essential hypertension (10 sources) Benign essential hypertension; Translations: [Essential (primary) hypertension] Onset: 07-22-2009 07-10-2021 Chronic Fever of unknown origin (1 source) Fever; Translations: [Fever, unspecified] 03-24-2021 Episodic Headache; including migraine (19 sources) Migraine; Translations: [Other forms of migraine] Onset: 09-01-2008 Resolved: 01-17-2023 12-04-2010 Chronic Menopausal disorders (3 sources) Postmenopausal bleeding; Translations: [Postmenopausal bleeding] Chronic Nonmalignant breast conditions (3 sources) Breast finding ; Translations: [Dense breast tissue] Onset: 02-25-2024 01-17-2024 Episodic Other female genital disorders (1 source) Polyp of corpus uteri; Translations: [Polyp of corpus uteri] 01-25-2023 Episodic Other female genital disorders (1 source) Polyp of corpus uteri; Translations: [Polyp of corpus uteri] 02-01-2023 Episodic Other screening for suspected conditions (not mental disorders or infectious disease) (1 source) Endometrium thickened; Translations: [Abnormal findings on diagnostic imaging of other specified body structures] 01-25-2023 Chronic Other screening for suspected conditions (not mental disorders or infectious disease) (8 sources) Patient encounter status; Translations: [Encounter for screening mammogram for malignant neoplasm of breast] Onset: 01-17-2024 Episodic Otitis media and related conditions (19 sources) Chronic serous otitis media; Translations: [Chronic serous otitis media] Onset: 09-26-2006 Resolved: 01-17-2023 12-04-2010 Chronic Residual codes; unclassified (6 sources) Family history of breast cancer; Translations: [Family history of malignant neoplasm of breast] Onset: 01-17-2024 Episodic Residual codes; unclassified (6 sources) Family history of malignant neoplasm of ovary; Translations: [Family history of malignant neoplasm of ovary] Onset: 01-17-2024 Episodic Residual codes; unclassified (1 source) Postmenopausal state; Translations: [Asymptomatic menopausal state] 01-17-2024 Episodic Unclassified (1 source) Dense breast tissue; Translations: [Dense breast tissue] Onset: 01-17-2024 Viral infection (2 sources) Disease caused by 2019-nCoV; Translations: [COVID-19] 03-24-2021 Episodic Past or Other Problems Problem Classification Problem Date Documented Date Episodic/Chronic Abdominal hernia (9 sources) Diaphragmatic hernia; Translations: [Diaphragmatic hernia without obstruction or gangrene] Onset: 09-26-2006 Resolved: 01-17-2023 12-04-2010 Episodic Other female genital disorders (9 sources) 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; Translations: [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, unspecified side] Onset: 09-03-2008 Resolved: 01-17-2023 12-04-2010 Episodic Ovarian cyst (1 source) Unspecified ovarian cyst, left side; Translations: [Cyst of left ovary] Onset: 07-12-2023 Episodic Results Test Name Value Interpretation Reference Range Facility [facility] US BREAST LTD LTon 02-24 [facility] US BREAST LTD LT * * *Final Report* * * DATE OF EXAM: Feb 25 2024 2:32PM [id number] - [facility] US BREAST LTD LT / PROCEDURE REASON: Mass of left breast, unspecified quadrant * * * * Physician Interpretation * * * * #[id number] - [facility] US BREAST LTD LT LIMITED ULTRASOUND OF LEFT BREAST: 02/25/2024 HISTORY: Mass Of Left Breast, Unspecified Quadrant. RESULT: No prior exams were available for comparison. Color flow and real-time ultrasound of the left breast 1 o'clock region were performed. Sequeira scale images of the real-time examination were reviewed. There is a benign 1.1 cm x 0.6 cm x 0.8 cm oval cyst in the left axillary tail. This oval cyst is anechoic. This correlates with mammography findings. Color flow imaging demonstrates that there is no vascularity present. IMPRESSION: BENIGN There is no sonographic evidence of malignancy. The 1.1 cm x 0.6 cm x 0.8 cm oval cyst is consistent with a simple cyst and is benign. Return to annual mammogram screening schedule is recommended. Verónica mayo/remedios:02/25/2024 14:40:58 Floor Finisher Helper(s): Tianna Geronimo [facility] Ultrasound BI-RADS: Category 2: Benign Multiple national specialty organizations have released breast cancer screening guidelines for women at average risk for developing breast cancer - guidelines that are based on both evidence and opinion, yet differ on when to start and how often to screen for breast cancer. With representation from Breast Imaging, Internal Medicine, Women's Health, Family Medicine, and Medical/Surgical Oncology, the [facility] has carefully reviewed the data and reached the following consensus: 1) All women should engage in shared decision-making with their providers to decide when to start and how often to screen; 2) All women should have the opportunity to start screening mammography at age 40; 3) For women ages 45-55, we recommend annual screening mammograms; 4) For women ages 55 and over, we support both the transition from an annual to a biennial interval if this aligns more with patient's values and preferences, or continuation with annual screening; 5) All women should discuss with their providers when to stop screening mammograms. Shift Lab Technician: Remedios Transcribe Date/Time: Feb 25 2024 2:22P Dictated by : VERÓNICA MARTÍNEZ MD This examination was interpreted and the report reviewed and electronically signed by: VERÓNICA MARTÍNEZ MD on Feb 25 2024 2:40PM EST [id number] Normal [facility] Breast - left limitedon 0 02-25-2024 IMPRESSION: BENIGN There is no sonographic evidence of malignancy. The 1.1 cm x 0.6 cm x 0.8 cm oval cyst is consistent with a simple cyst and is benign. Return to annual mammogram screening schedule is recommended. Verónica mayo/remedios:02/25/2024 14:40:58 Floor Finisher Helper(s): Tianna Geronimo [facility] Ultrasound BI-RADS: Category 2: Benign Multiple national specialty organizations have released breast cancer screening guidelines for women at average risk for developing breast cancer - guidelines that are based on both evidence and opinion, yet differ on when to start and how often to screen for breast cancer. With representation from Breast Imaging, Internal Medicine, Women's Health, Family Medicine, and Medical/Surgical Oncology, the [facility] has carefully reviewed the data and reached the following consensus: 1) All women should engage in shared decision-making with their providers to decide when to start and how often to screen; 2) All women should have the opportunity to start screening mammography at age 40; 3) For women ages 45-55, we recommend annual screening mammograms; 4) For women ages 55 and over, we support both the transition from an annual to a biennial interval if this aligns more with patient's values and preferences, or continuation with annual screening; 5) All women should discuss with their providers when to stop screening mammograms. Shift Lab Technician: Remedios Transcribe Date/Time: Feb 25 2024 2:22P Dictated by : VERÓNICA MARTÍNEZ MD This examination was interpreted and the report reviewed and electronically signed by: VERÓNICA MARTÍNEZ MD on Feb 25 2024 2:40PM EST DIVISION OF RADIOLOGY * * *Final Report* * * DATE OF EXAM: Feb 25 2024 2:32PM [id number] - [facility] BREAST LTD LT / PROCEDURE REASON: Mass of left breast, unspecified quadrant * * * * Physician Interpretation * * * * #[id number] - [facility] LIMITED ULTRASOUND OF LEFT BREAST: 02/25/2024 HISTORY: Mass Of Left Breast, Unspecified Quadrant. RESULT: No prior exams were available for comparison. Color flow and real-time ultrasound of the left breast 1 o'clock region were performed. Sequeira scale images of the real-time examination were reviewed. There is a benign 1.1 cm x 0.6 cm x 0.8 cm oval cyst in the left axillary tail. This oval cyst is anechoic. This correlates with mammography findings. Color flow imaging demonstrates that there is no vascularity present. DIVISION OF RADIOLOGY Provider, [facility] [place] - 02/25/2024 * * *Final Report* * * DATE OF EXAM: Feb 25 2024 2:32PM [id number] - [facility] BREAST [facility] / PROCEDURE REASON: Mass of left breast, unspecified quadrant * * * * Physician Interpretation * * * * #[id number] - [facility] LIMITED ULTRASOUND OF LEFT BREAST: 02/25/2024 HISTORY: Mass Of Left Breast, Unspecified Quadrant. RESULT: No prior exams were available for comparison. Color flow and real-time ultrasound of the left breast 1 o'clock region were performed. Sequeira scale images of the real-time examination were reviewed. There is a benign 1.1 cm x 0.6 cm x 0.8 cm oval cyst in the left axillary tail. This oval cyst is anechoic. This correlates with mammography findings. Color flow imaging demonstrates that there is no vascularity present. IMPRESSION IMPRESSION: BENIGN There is no sonographic evidence of malignancy. The 1.1 cm x 0.6 cm x 0.8 cm oval cyst is consistent with a simple cyst and is benign. Return to annual mammogram screening schedule is recommended. Verónica mayo/remedios:02/25/2024 14:40:58 Floor Finisher Helper(s): Tianna Geronimo [facility] Ultrasound BI-RADS: Category 2: Benign Multiple national specialty organizations have released breast cancer screening guidelines for women at average risk for developing breast cancer - guidelines that are based on both evidence and opinion, yet differ on when to start and how often to screen for breast cancer. With representation from Breast Imaging, Internal Medicine, Women's Health, Family Medicine, and Medical/Surgical Oncology, the [facility] has carefully reviewed the data and reached the following consensus: 1) All women should engage in shared decision-making with their providers to decide when to start and how often to screen; 2) All women should have the opportunity to start screening mammography at age 40; 3) For women ages 45-55, we recommend annual screening mammograms; 4) For women ages 55 and over, we support both the transition from an annual to a biennial interval if this aligns more with patient's values and preferences, or continuation with annual screening; 5) All women should discuss with their providers when to stop screening mammograms. Shift Lab Technician: Remedios Transcribe Date/Time: Feb 25 2024 2:22P Dictated by : VERÓNICA MARTÍNEZ MD This examination was interpreted and the report reviewed and electronically signed by: VERÓNICA MARTÍNEZ MD on Feb 25 2024 2:40PM EST [facility] Radiology Study observation (narrative) [facility] US Breast - left limitedOrde red By: [facility] Provider on 02-25-2024 [facility] CNCOon 01-20-2024 CNCO HNO ID: [id number] Author: COORDINATOR, MAMMOGRAPHY, ? Service: ? Author Type: Physician Type: Letter Filed: 01/20/2024 16:39 Note Text: January 20, 2024 PID: [id number] June Becerra [address] [place] [address] Dear Ms. Becerra, Your recent breast imaging exam on 01/17/2024 showed a possible finding that requires additional imaging studies for a complete evaluation. Most such findings are probably benign (not cancer). If you have a healthcare provider who ordered/prescribed your screening mammogram: Please call [phone] or [phone] to schedule an appointment for your additional imaging (if you have not already done so). If you DO NOT have a healthcare provider (ie you did not have an order/prescription for your screening mammogram): Please call to schedule an appointment for your additional imaging (if you have not already done so). You must have an order/prescription from your physician when calling to schedule your appointment. If your order/prescription is not electronic, you must bring the hard copy with you on the day of your exam to avoid delays. Your imaging studies and reports are kept on file at [facility] as part of your permanent medical record, and are available for your continuing care. Thank you for allowing us to help in meeting your health care needs. Sincerely, Dr. Arzate Interpreting Radiologist [facility] (Additional imaging) Normal [facility] CNOVon 01-17-2024 CNOV Office Visit (OBGYWM) ---- JUNE BECERRA ([id number]) 1975 F Date Time Provider Department 01/17/24 3:30 PM TIANNA KO OBGYWM During your visit today, we recorded the following information about you: Blood pressure Weight Height 122/78 90.3 kg 1.676 m Tianna Ko APRN.CNM 01/17/2024 4:05 PM Signed June is a 48 year old who presents for an annual gynecologic exam without complaints. Menses: postmenopausal, LMP 10/2022 Patient underwent hysteroscopy DANDC for endometrial thickening, abnormal uterine bleeding is suspected endometrial polyp. No discrete polyp noted on exam. Visual DANDC completed. Pathology negative Contraception: none-vasectomy, postmenopausal HPV vaccine: N/A Last Pap: 07/13/2020 normal HPV: 07/11/2020 negative History of abnormal pap: No Last mammogram:12/28/2022 , 01/17/2024 Sexually active: Yes Time with current partner: 31 years Pain with intercourse: No Postcoital bleeding: No Hot flashes: Yes, Ashwaganda supplement and working Night sweats: No Vaginal dryness: Yes, using KY jelly and this is working Mood swings: No Insomnia: No Exercise: Walking Diet: Regular diet Seatbelt use: Yes OB History T0 L2 SAB0 IAB0 Ectopic0 Multiple0 Live Births0 Station Operator History LMP: 10/13/2022 (Approximate), Having periods Age at Menarche: Age at First : Age at Menopause: Station Operator History Comments: Sexual Activity: Yes; Male Contraception: Vasectomy PAST MEDICAL HISTORY Diagnosis Date 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 Sam, [place] Elevated blood pressure Essential hypertension, benign Esophageal reflux see hiatal hernia Hearing loss Mainly in Left Ear Other forms of migraine age mid 20's menstrual Panic disorder without agoraphobia see old records Anxiety state Simple or unspecified chronic serous otitis media 2001 see surgical history, tymp tube PAST SURGICAL HISTORY Procedure Laterality Date EXTRACTION, ERUPTED TOOTH OR EXPOSED ROOT (ELEVATION AND/OR FORCEPS REMOVAL) wisdom HYSTEROSCOPY BX ENDOMETRIUMAND/POLY PC W/WO DANDC 01/24/2023 hysteroscopy [facility] for [facility]UB MYRINGOTOMY ASPIRAND/EUSTACHIAN TUBE [facility] 2001, Karrie RIGHT Myringotomy/tubes OOPHORECTOMY PARTIAL/TOTAL UNI/BI 11/11/[address] Artis at [facility] PAST SURGICAL HISTORY OF 2001, same as below LEFT mastoidectomy (Dr. Zhong) TONSILLECTOMY AND ADENOIDECTOMY FAMILY HISTORY Problem Relation Age of Onset other (ovarian cancer) Mother mid 40's other (Other) Father Unknown Headache Sister migraine No Known Problems Brother Breast Cancer Maternal Grandmother age late 60's Alcohol/Drug Maternal Grandfather No Known Problems Daughter No Known Problems Son Cervical Cancer Maternal Aunt Breast Cancer Maternal Aunt other (Brain Tumor) Maternal Aunt from this SOCIAL HISTORY Social History Tobacco Use Smoking status: Never Smokeless tobacco: Never Vaping Use Vaping Use: Never used Substance Use Topics Alcohol use: No Drug use: No REVIEW OF SYSTEMS Abdomen: No abdominal pain, nausea, vomiting, diarrhea, or constipation. No bloating, early satiety, indigestion, or increased flatulence. Bladder: No dysuria, gross hematuria, urinary frequency, urinary urgency, or incontinence. Breast: No breast lumps, nipple d/c, overlying skin changes, redness or skin retraction. Allergies and current medication updated:Yes EXAM: LMP 10/13/2022 BP 122/78 Ht 167.6 cm (5' 6) Wt 90.3 kg (199 lb) LMP 10/13/2022 (Approximate) BMI 32.12 kg/m? GENERAL: pleasant, female in no apparent distress HEENT: Normocephalic, atraumatic, mucus membranes moist, and no lesions NECK: Supple, full range of motion, no adenopathy, and thyroid normal DERMATOLOGY: Normal, without lesions, non-icteric, and non-hirsute BREAST: soft, non-tender, symmetric, no dominant mass, normal nipple-areolar complex, no lymphadenopathy, and no nipple discharge CHEST: Clear to auscultation, Normal inspiratory effort, Regular rate and rhythm, and No murmurs, clicks, rubs or gallops ABDOMEN: soft, non-tender, and no masses PELVIC: external genitalia normal, normal Bartholin's glands, urethra, [place]'s glands, no vulvar lesions, no cervical lesions, good vaginal support, physiologic discharge present, normal appearing perineal body and perianal region BIMANUAL: uterus normal size, shape and consistency, no adnexal masses, and non-tender RECTOVAGINAL: deferred. NEURO: alert and oriented x3,exam grossly non-focal EXTREMITIES: normal ASSESSMENT/PLAN: 1. Encounter for gynecological examination (general) (routine) without abnormal findings - ICD9: V72.31, ICD10: Z01.419 (primary diagnosis) - Completed pelvic and breast exam (more content not included)... Normal [facility] SCREENING W TOMOon 01-16 [facility] SCREENING W ELINOR * * *Final Report* * * DATE OF EXAM: Jan 17 2024 2:02PM [facility] [id number] - [facility] SCREENING W ELINOR / PROCEDURE REASON: multiple diagnoses * * * * Physician Interpretation * * * * RESULT: #[id number] - [facility] SCREENING W [facility] BILATERAL DIGITAL SCREENING MAMMOGRAM TOMOSYNTHESIS WITH CAD: 01/17/2024 HISTORY: Multiple Diagnoses / Screening Mammogram-Patient reports NO symptoms. /priors available for comparison. RESULT: TECHNIQUE: The study was acquired using full field digital technology and interpreted from soft copy. Digital Breast Tomosynthesis (DBT) images were obtained and used to assist in the interpretation of this examination. Current study was also evaluated with a Computer Aided Detection (CAD). Comparison is made to exams dated: 12/28/2022 mammogram, 09/22/2021 mammogram, and 07/11/2020 mammogram - [facility]. There are scattered areas of fibroglandular density. There is a mass in the left breast at 1 o'clock posterior depth. Finding is best noted on tomographic CC slice 35 and MLO slice 37. No other significant masses, calcifications, or other findings are seen in either breast. IMPRESSION: INCOMPLETE: NEEDS ADDITIONAL IMAGING EVALUATION The mass in the left breast is indeterminate. An ultrasound is recommended. Jany ellis/remedios:01/20/2024 16:39:04 Floor Finisher Helper(s): Sapphire Mendoza, [facility] letter sent: Additional Imaging Needed Mammogram BI-RADS: 0 Incomplete: needs additional imaging evaluation If this report indicates you need additional imaging, and it has NOT yet been performed, please call , to schedule. We sincerely thank you for choosing the [facility] for your breast imaging needs. Multiple national specialty organizations have released breast cancer screening guidelines for women at average risk for developing breast cancer - guidelines that are based on both evidence and opinion, yet differ on when to start and how often to screen for breast cancer. With representation from Breast Imaging, Internal Medicine, Women's Health, Family Medicine, and Medical/Surgical Oncology, the [facility] has carefully reviewed the data and reached the following consensus: 1) All women should engage in shared decision-making with their providers to decide when to start and how often to screen; 2) All women should have the opportunity to start screening mammography at age 40; 3) For women ages 45-55, we recommend annual screening mammograms; 4) For women ages 55 and over, we support both the transition from an annual to a biennial interval if this aligns more with patient's values and preferences, or continuation with annual screening; 5) All women should discuss with their providers when to stop screening mammograms. Shift Lab Technician: Remedios Transcribe Date/Time: Jan 17 2024 1:54P Dictated by: JANY ARZATE MD This examination was interpreted and the report reviewed and electronically signed by: JANY ARZATE MD on Jan 20 2024 4:39PM EST [id number] Normal [facility] PELVIC US WHIon 01-07-2023 [facility] Absolute lymphocyte countOrd ered By: Farheen Loyola on 11-13-2022 Lymphocytes Auto (Unsp spec) [#/Vol] 1.57 10*3/uL 0.83-4.51 [facility] Basophil percentageOrdered B y: Farheen Loyola on 11-13-2022 Basophils/100 WBC (Bld) 0.6 % 0-1 [facility] Bilirubin [Mass/Vol] 0.50 mg/dL 0.20-1.00 [facility] Comment on above: For patients on eltr ombopag therapy, use of Dimension [place] TBIL is not recommended. Chloride [Moles/Vol] 109 mmol/L 98-107 [facility] Eosinophils/100 WBC (Bld) 6.6 % 0-5 [facility] Glucose [Mass/Vol] 92 mg/dL 74-106 [facility] Neutrophils (Bld) [#/Vol] 2.6 10*3/uL 2.0-7.7 [facility] Neutrophils/100 WBC (Bld) 55.0 % 47-70 [facility] Potassium [Moles/Vol] 3.6 mmol/L 3.5-5.1 [facility] Protein [Mass/Vol] 7.2 g/dL 6.4-8.2 [facility] Sodium [Moles/Vol] 141 mmol/L 136-145 [facility] WBC (Bld) [#/Vol] 4.7 10*3/uL 4.4-11.0 [facility] Blood erythrocytes count (nu mber/volume)Ordered By: Farheen Loyola on 11-13-2022 RBC (Bld) [#/Vol] 4.70 10*6/uL 4.2-5.[address] [facility] Blood hemoglobin measurement (mass/volume)Ordered By: Farheen Loyola on 11-13-2022 Hemoglobin (Bld) [Mass/Vol] 12.4 g/dL 12.0-15.0 [facility] Blood lymphocytes/100 leukoc ytesOrdered By: Farheen Loyola on 11-13-2022 Lymphocytes/100 WBC (Bld) 33.5 % 19-41 [facility] Blood monocytes/100 leukocyt esOrdered By: Farheente Loyola on 11-13-2022 Monocytes/100 WBC (Bld) 4.1 % 0-10 [facility] Blood platelet mean volumeOr dered By: Farheente Loyola on 11-13-2022 Platelet mean volume (Bld) [Entitic vol] 9.9 fL 6.2-12.0 [facility] Determination of erythrocyte mean corpuscular volume (MCV)Ordered By: Farheente Loyola on 11-13-2022 MCV (RBC) [Entitic vol] 80.4 fL 81-99 [facility] Hematocrit Auto (Bld) [Volum e fraction]Ordered By: Peralta Nir on 11-13-2022 Hematocrit (Bld) [Volume fraction] 37.8 % 37-47 [facility] Laboratory - Chemistry and C hemistry - challengeOrdered By: [facility] on 11-13-2022 ALP [Catalytic activity/Vol] 116 U/L 45-117 [facility] ALT [Catalytic activity/Vol] 42 U/L 13-56 [facility] CO2 [Moles/Vol] 27.0 mmol/L 21.0-32.0 [facility] Free T4 [Mass/Vol] 1.13 ng/dL 0.76-1.46 [facility] Globulin (S) [Mass/Vol] 3.3 g/dL 2.2-4.2 [facility] Urea nitrogen/Creatinine [Mass ratio] 12.9 mg/mg 10-20 [facility] - Hematology and Cell countsOrdered By: Peralta Nir on 11-13-2022 Erythrocyte distribution width (RBC) [Entitic vol] 39.6 fL 35.1-43.9 [facility] Erythrocyte distribution width (RBC) [Ratio] 13.6 % 11.6-14.6 [facility] Immature granulocytes/100 WBC (Bld) 0.200 % 0.0-0.9 [facility] Comment on above: IG% - Immature Granu locytes (promyelocytes, myelocytes and metamyelocytes) > 1% indicates that a LEFT SHIFT is Present. MCH (RBC) [Entitic mass] 26.4 pg 27.0-32.0 [facility] Nucleated RBC/100 WBC (Bld) [Ratio] 0 % 0-5 [facility] MCHC Auto (RBC) [Mass/Vol]Or dered By: Farheen Loyola on 11-13-2022 MCHC (RBC) [Mass/Vol] 32.8 g/dL 32-36 [facility] No Panel InformationOrdered By: Farheen Loyola on 11-13-2022 Estimated GFR (MDRD) Amer 102 mL/min >60 [facility] Comment on above: GFR Calc Estimated GFR (MDRD) Non-Af Amer 84 mL/min >60 [facility] Comment on above: Non- GFR Calc Thyroid Stimulating Hormone (TSH) 2.22 uIU/mL 0.358-3.74 [facility] Vitamin D 25-Hydroxy 43.8 ng/mL [facility] Comment on above: Vitamin D 25(OH) Sta tus Range Deficiency <20 ng/mL (50nmol/L) Insufficiency 20 - 30 ng/mL (50 - 75 nmol/L) Sufficiency 30 - 100 ng/mL (75 - 250 nmol/L) Toxicity >100 ng/mL (>250 nmol/L) Platelets bldOrdered By: Rosalva Loyola on 11-13-2022 Platelets (Bld) [#/Vol] 216 10*3/uL 150-450 [facility] Serum or plasma albumin arturo urement (mass/volume)Ordered By: Farheen Loyola on 11-13-2022 Albumin [Mass/Vol] 3.9 g/dL 3.2-5.0 [facility] Serum or plasma albumin/glob ulin mass ratioOrdered By: Farheen Loyola on 11-13-2022 Albumin/Globulin [Mass ratio] 1.2 {ratio} 0.9-2.4 [facility] Serum or plasma calcium arturo urement (mass/volume)Ordered By: Farheen Loyola on 11-13-2022 Calcium [Mass/Vol] 9.2 mg/dL 8.5-10.1 [facility] Serum or plasma creatinine m easurement (mass/volume)Ordered By: Farheen Loyola on 11-13-2022 Creatinine [Mass/Vol] 0.77 mg/dL 0.55-1.02 [facility] Comment on above: The validity of the calculated GFR & GFRAA in patients over 70 years has not been determined. Clinical correlation is essential. Serum or plasma urea nitroge n measurement (mass/volume)Ordered By: Farheen Loyola on 11-13-2022 Urea nitrogen [Mass/Vol] 10 mg/dL 7-18 [facility] Thin prep Papanicolaou smear with manual screeningOrdered By: Farheen Loyola on 11-13-2022 Thin prep Papanicolaou smear with manual screening 29 U/L 15 [facility] Thin prep Papanicolaou smear with manual screening 5 5-15 [facility] Vital Signs Date Time Vital Sign Value Performing Clinician Faci lity 01-08-2025 10:45-0400 Body temperature 98 [degF] Farheen Loyola SEQUENCING MACHINE OPERATOR-C Work Phone: [facility] 01-08-2025 10:45-0400 Diastolic blood pressure 55 mm[Hg] Farheen Loyola SEQUENCING MACHINE OPERATOR-C Work Phone: [facility] 01-08-2025 10:45-0400 Heart rate 60 /min Farheen Nir SEQUENCING MACHINE OPERATOR-C Work Phone: [facility] 01-08-2025 10:45-0400 Respiratory rate 16 /min Farheen Nir SEQUENCING MACHINE OPERATOR-C Work Phone: [facility] 01-08-2025 10:45-0400 SaO2% (BldA) [Mass fraction] 97 % Farheen Loyola SEQUENCING MACHINE OPERATOR-C Work Phone: [facility] 01-08-2025 10:45-0400 Systolic blood pressure 91 mm[Hg] Farheen Loyola SEQUENCING MACHINE OPERATOR-C Work Phone: [facility] 01-08-2025 09:05-0400 Body height 167.64 cm Farheen Loyola SEQUENCING MACHINE OPERATOR-C Work Phone: [facility] 01-08-2025 09:05-0400 Body mass index (BMI) [Ratio] 30.6 kg/m2 Farheen Loyola SEQUENCING MACHINE OPERATOR-C Work Phone: [facility] 01-08-2025 09:05-0400 Body weight 86 kg Farheen Loyola SEQUENCING MACHINE OPERATOR-C Work Phone: [facility] 01-17-2024 15:40-0400 Body height 167.6 cm Tianna Ko UTILITY ENGINEER.CNM Work Phone: [facility] 01-17-2024 15:40-0400 Body mass index (BMI) [Ratio] 32.12 kg/m2 Tianna Ko UTILITY ENGINEER.CNM Work Phone: [facility] 01-17-2024 15:40-0400 Body weight 90.27 kg Tianna Ko UTILITY ENGINEER.CNM Work Phone: [facility] 01-17-2024 15:40-0400 Diastolic blood pressure 78 mm[Hg] Tianna Ko UTILITY ENGINEER.CNM Work Phone: [facility] 01-17-2024 15:40-0400 Systolic blood pressure 122 mm[Hg] Tianna Ko UTILITY ENGINEER.CNM Work Phone: [facility] 12-28-2022 14:47-0400 Body height 172.7 cm Tianna Ko UTILITY ENGINEER.CNM Work Phone: [facility] 12-28-2022 14:47-0400 Body weight 88.91 kg Tianna Ko UTILITY ENGINEER.CNM Work Phone: [facility] 12-28-2022 14:47-0400 Diastolic blood pressure 78 mm[Hg] Tianna Ko UTILITY ENGINEER.CNM Work Phone: [facility] 12-28-2022 14:47-0400 Systolic blood pressure 126 mm[Hg] Tianna Ko UTILITY ENGINEER.CNM Work Phone: [facility] Encounters Encounter Date Encounter Type Care Provider Facility Start: 01-08-2025 Non-patient / Non-visit Dr. Wilbert Summers MD -[facility] Start: 01-08-2025 End: 01-08-2025 Admission to same day surgery center Dr. Chapo Summers MD -Endoscopy Work Phone: Start: 01-08-2025 End: 01-08-2025 ambulatory Chapo Kristopher Facility:[facility] Start: 02-25-2024 End: 02-25-[address] [facility] Facility:[facility] Start: 02-25-2024 End: 02-25-2024 Subsequent hospital visit by physician [facility] Work Phone: Radiology Comment on above: Mass of left breast, unspecified quadrant [N63.20] Start: 01-20-2024 Documentation procedure Mammog renetta Coordinator [facility] Department Start: 01-20-2024 Letter encounter Mammography Coordinator [facility] Start: 01-17-2024 End: 01-17-2024 [facility] Start: 01-17-2024 End: 01-17-2024 Patient encounter procedure Tianna Ko APRN.CNM Work Phone: OB/Gynecology Comment on above: Encounter for gyneco logical examination (general) (routine) without abnormal findings (Primary Dx); Encounter for screening mammogram for breast cancer; Family history of ovarian cancer; Family history of breast cancer; Postmenopausal Start: 01-17-2024 End: 01-17-2024 Patient encounter status Tianna Ko APRN.CNM Work Phone: [facility] Start: 01-17-2024 End: 01-17-2024 [facility] Start: 01-17-2024 End: 01-17-2024 Subsequent hospital visit by physician [facility] Comment on above: Encounter for screen ing mammogram for breast cancer [Z12.31] Start: 07-12-2023 End: 07-12-2023 ambulatory TIANNA BROWNWOOD Facility:[facility] Start: 01-25-2023 ambulatory Marissa santacruz MD Work Phone: OB/Gynecology Comment on above: Thickened endometriu m (Primary Dx); Endometrial polyp; Postmenopausal bleeding Start: 01-25-2023 Patient encounter procedure Marissa Wells MD Work Phone: [facility] Start: 01-07-2023 Telephone encounter Marissa Wells MD Work Phone: OB/Gynecology Comment on above: Results Start: 01-07-2023 End: 01-07-2023 ambulatory Ob Ultrasound Work Phone: OB/Gynecology Comment on above: DUB Start: 01-07-2023 End: 01-07-2023 Patient encounter procedure [employer] Vice President [facility] Work Phone: [facility] Start: 12-31-2022 Documentation procedure Mammog renetta Coordinator [facility] Start: 12-31-2022 Letter encounter Mammography Coordinator [facility] Start: 12-28-2022 End: 12-28-2022 Patient encounter procedure Tianna Ko APRN.CNM Work Phone: OB/Gynecology Comment on above: Encounter for gyneco logical examination (general) (routine) without abnormal findings (Primary Dx); Encounter for screening mammogram for breast cancer; Dense breast tissue; Postmenopausal bleeding; Family history of malignant neoplasm of breast; Family history of ovarian cancer Start: 12-28-2022 End: 12-28-2022 Patient encounter status Tianna Ko APRN.CNM Work Phone: OB/Gynecology Start: 11-13-2022 End: 11-13-2022 ambulatory [facility] Work Phone: Start: 11-13-2022 End: 11-13-2022 Patient encounter procedure [facility] Start: 11-12-2022 Orders Only Tianna Ko APRN.CNM Work Phone: [facility] Comment on above: Encounter for screen ing mammogram for malignant neoplasm of breast (Primary Dx) Start: 02-15-2017 End: 02-15-2017 Ambulatory Chapo Artis Facility:[facility] Start: 12-04-2010 Patient encounter status Lisa Ko APRN.CNM Work Phone: [facility] Work Phone: Start: 09-01-2008 End: 01-17-2023 Patient encounter status Tianna Ko APRN.CNM Work Phone: [facility] Procedures Date Procedure Procedure Detail Performing Clinician Start: 01-08-2025 Colonoscopy Farheen Self ar SEQUENCING MACHINE OPERATOR-C Work Phone: Start: 02-25-2024 Us breast uni real t vazquez with image limited Tianna Ko APRN.CNM Work Phone: Start: 01-07-2023 Us pelvic nonobstetr ic real-time image complete Tianna Ko APRN.CNM Work Phone: Start: 12-28-2022 Mammography Mammograph y Coordinator Start: 09-22-2021 Mammography Tianna velázquez APRN.CNM Work Phone: Start: 05-29-2012 Lipid 1996 panel - S jenni or Plasma Tianna Ko APRN.CNM Work Phone: Plan of Treatment Date Care Activity Detail Author Start: 01-18-2033 Urine microalbumin profile DTaP,Tdap,Td Vaccine (3 - Td or Tdap) [facility] Start: 07-06-2025 HPV TESTING HPV TESTING [facility] Start: 07-06-2025 PAP TESTING PAP TESTING [facility] Start: 07-06-2025 Screening for malign ant neoplasm of cervix Cervical Cancer Screening [facility] Start: 01-22-2025 End: 01-22-2025 Patient encounter procedure Mammogram Comment on above: Encounter for screen ing mammogram for breast cancer [Z12.31] Annual Exam Start: 01-16-2025 BP Controlled (<130/80) BP Controlle d (<130/80) [facility] Start: 01-16-2025 Screening for malign ant neoplasm of breast Mammogram Screening [facility] Start: 01-08-2025 Patient discharge [facility] [place] [place] Start: 03-15-2024 Influenza vaccination Influenza Vacc ine (#1) [facility] Start: 12-29-2023 BP CONTROLLED (<130/80) BP CONTROLLE D (<130/80) [facility] Start: 12-29-2023 Mammography MAMMOGRAM [facility] Start: 12-29-2023 Screening for malign ant neoplasm of breast Mammogram Screening [facility] Start: 07-15-2023 Behavioral Health Screening Behavioral Health Screening [facility] Start: 03-15-2023 Covid-19 Vaccine ( season) Covid-19 Vaccine () [facility] Start: 03-15-2023 Influenza vaccination C [facility] Start: 12-28-2022 End: 12-29-2023 PELVIC US WHI PELVIC US WHI Anc Imaging Routine Postmenopausal bleeding Expected: 12/28/2022, Expires: 12/29/2023 [facility] Work Phone: Comment on above: Expected: 12/28/2022 , Expires: 12/29/2023 Start: 09-22-2022 Mammography MAMMOGRAM [facility] Start: 07-15-2022 DEPRESSION ASSESSMENT DEPRESSION ASS ESSMENT [facility] Start: 2019 COLOGUARD (FIT-DNA) COLOGUARD (FIT-D NA) [facility] Start: 2019 Colonoscopy COLONOSCOPY [facility] Start: 2019 COLORECTAL CANCER SCREENING COLORECTAL CANCER SCREENING [facility] Start: [address] COLONOGRAPHY [facility] Start: 2019 DIABETES SCREEN DIABETES SCREEN [facility] Start: 2019 Diabetes Screening Diabetes Screenin g [facility] Start: 2019 FECAL OCCULT BLOOD FECAL OCCULT BLOO D [facility] Start: 2019 Lipid panel Lipid Screening [facility] Start: 2019 LIPID SCREEN LIPID SCREEN [facility] Start: 2019 Screening for malign ant neoplasm of colon [facility] Start: 2019 SIGMOIDOSCOPY [facility]OSCOPY [facility] Start: 10-22-2016 Urine microalbumin profile DTAP,TDAP,TD (2 - Td or Tdap) [facility] Start: 1993 Hepatitis B Vaccine (1 of 3 - 19+ 3-dose series) Hepatitis B Vaccine (1 of 3 - 19+ 3-dose series) [facility] Start: 1992 ANNUAL PCP TEAM READING ASSISTANT MAGDA DISEASE VISIT ANNUAL PCP TEAM CHRONIC DISEASE VISIT [facility] Start: 1992 BP CONTROLLED (<130/80) BP CONTROLLE D (<130/80) [facility] Start: 1992 Depression Screening Depression Scre ening [facility] Start: 1992 HEPATITIS C SCREENING HEPATITIS C [facility] Start: 1992 Hepatitis C screening Hepatitis C [facility] Start: 1992 HIV SCREENING HIV SCREENING [facility] Start: 1992 HIV screening HIV Screening [facility] Start: 1974 COVID-19 VACCINE (#1) COVID-19 VACCI NE (#1) [facility] Start: 1975 HEPATITIS B (1 of 3 - 3-dose series) HEPATITIS B (1 of 3 - 3-dose series) [facility] End: 02-15-2025 DBT Breast - bilateral screening JOSE A SCREENING [facility] Radiology Routine Encounter for screening mammogram for breast cancer 1 Occurrences starting 01/17/2024 until 02/15/2025 [facility] Work Phone: Comment on above: 1 Occurrences starti ng 01/17/2024 until 02/15/2025 DBT Breast - bilater al screening [facility]SE A SCREENING [facility] Radiology Routine Encounter for screening mammogram for breast cancer Dense breast tissue 01/17/2024 2:02 PM EDT [facility] Work Phone: End: 12-12-2023 JOSE A SCREENING JOSE A SCREENING Radiology Routine Encounter for screening mammogram for malignant neoplasm of breast 1 Occurrences starting 11/13/2022 until 12/12/2023 [facility] Work Phone: Comment on above: 1 Occurrences starti ng 11/13/2022 until 12/12/2023 End: 01-27-2024 JOSE A SCREENING [facility]SE A SCREENING [facility] Radiology Routine Encounter for screening mammogram for breast cancer Dense breast tissue 1 Occurrences starting 12/28/2022 until 01/27/2024 [facility] Work Phone: Comment on above: 1 Occurrences starti ng 12/28/2022 until 01/27/2024 [facility] Immunizations Immunization Date Immunization Notes Care Provider Maya alarcon 05-03-2023 influenza virus vaccine, unspecified formulation Tianna Ko APRN.CNM Work Phone: [facility] 05-26-2022 influenza, injectabl e, quadrivalent, preservative free Marissa Marcin MD Work Phone: [facility] Work Phone: 04-01-2020 influenza, injectabl e, quadrivalent, preservative free Marissa Wells MD Work Phone: [facility] Work Phone: 04-18-2018 influenza, injectabl e, quadrivalent, preservative free Marissa Wells MD Work Phone: [facility] Work Phone: 05-07-2013 influenza virus vaccine, unspecified formulation Tianna Ko UTILITY ENGINEER.CNM Work Phone: [facility] 10-22-2006 tetanus toxoid, redu viola diphtheria toxoid, and acellular pertussis vaccine, adsorbed Tianna Ko UTILITY ENGINEER.CNM Work Phone: [facility] Work Phone: Payers Date Payer Category Payer Self-pay [id number] 2022 Unknown [id number] 2019 Unknown [id number] Unknown [id number] Unknown [facility] [id number] Unknown [id number] Social History Date Type Detail Facility Start: 02-02-2013 End: 01-08-2025 Tobacco smoking status NHIS Never smoked tobacco [facility] Start: 02-02-2013 End: 12-28-2022 Tobacco use and exposure Smokeless tobacco non-user [facility] Start: 09-22-2021 End: 01-17-2024 Alcohol intake Current non-drinker of alcohol (finding) [facility] Start: 1975 Sex Assigned At Female C [facility] Start: 03-24-2021 Tobacco smoking stat us [facility] Unknown if ever smoked [facility] Start: 12-28-2022 End: 01-17-2023 History of Social function [facility] Start: 12-28-2022 End: 01-17-2023 Tobacco use panel [facility] National Score (1-100), lower number is lower risk 64 [facility] Start: 06-15-2020 Gender identity Identifies as female gender (finding) [facility] Start: 06-15-2020 Sexual orientation Heterosexual (fin justin) [facility] NEGATED: Highlighted row Not [facility] Goals Date Patient Goal Desired Activity /State Mental Status Date Assessment Result Facility 01-08-2025 Cognitive function Voice/Name [place] Work Phone: Clinical Notes 09-03-2008 to 01-08-2025 Note Date & Type Note Facility 01-08-2025 Consult note [facility] 01-08-2025 Consult note [facility] 01-08-2025 Evaluation note Diagnosis Onset Date Resolution Screen for colon cancer acute January 08, 2025 8:44am [facility] Work Phone: 1([phone] 557-396906-27-2025 Procedure note [facility] Medical Records Department [address] [place] [id number] Colonoscopy Report MR#: [id number] Acct: [id number] Name: JUNE BECERRA Rep #:[id number] : 1975 49 From: Chapo gudino MD PCP: YVONNE Cárdenas [place] [facility] [place] Name: June Becerra Procedure Date: 01/08/2025 10:02 AM Date of : 1975 Age: 49 Procedure: Colonoscopy Indications: Screening for colorectal malignant neoplasm Providers: Chapo Summers MD Referring MD: Yvonne Cárdenas Medicines: Propofol per Anesthesia Patient Profile: This is a 49 year old female. Refer to note in patient chart for documentation of history and physical. Last Colonoscopy: none. The patient's first colonoscopy is today. Complications: No immediate complications. Procedure: Pre-Anesthesia Assessment: - Prior to the procedure, a History and Physical was performed, and patient medications and allergies were reviewed. The patient's tolerance of previous anesthesia was also reviewed. The risks and benefits of the procedure and the sedation options and risks were discussed with the patient. All questions were answered, and informed consent was obtained. Prior Anticoagulants: The patient has taken no anticoagulant or antiplatelet agents. ASA Grade Assessment: II - A patient with mild systemic disease. After reviewing the risks and benefits, the patient was deemed in satisfactory condition to undergo the procedure. After I obtained informed consent, the scope was passed under direct vision. Throughout the procedure, the patient's blood pressure, pulse, and oxygen saturations were monitored continuously. The colonoscope was introduced through the anus and advanced to the cecum, identified by appendiceal orifice and ileocecal valve. The colonoscopy was performed without difficulty. The patient tolerated the procedure well. The quality of the bowel preparation was good. The ileocecal valve, appendiceal orifice, and rectum were photographed. Scope In: 10:11:30 AM Scope Withdrawal Time 0 hours 6 minutes 14 seconds Scope Out: 10:21:26 AM Total Procedure Duration Time 0 hours 9 minutes 56 seconds Findings: The entire examined colon appeared normal on direct and retroflexion views. Impression: - The entire examined colon is normal on direct and retroflexion views. - No specimens collected. Recommendation: - Discharge patient to home. - Resume previous diet. - Continue present medications. - Repeat colonoscopy in 10 years for screening purposes. Procedure Code(s): --- Professional --- 15142, Colonoscopy, flexible; diagnostic, including collection of specimen(s) by brushing or washing, when performed (separate procedure) Diagnosis Code(s): --- Professional --- Z12.11, Encounter for screening for malignant neoplasm of colon CPT copyright 2021 [employer]. All rights reserved. The codes documented in this report are preliminary and upon tax collector review may be revised to meet current compliance requirements. Chapo Summers MD 01/08/2025 10:23:46 AM This report has been signed electronically. Number of Addenda: 0 Note Initiated On: 01/08/2025 10:02 AM 01/08/25 1024 Date _ Chapo Gaines Signature: Date (if indicated) CC: PORSHAC Farheen Loyola; Dr. Chapo Summers MD ~ Date Dictated: 01/08/25 1002 Date Transcribed: Shift Lab Technician: AC Signed [facility]06-27-2025 Procedure note [facility] Medical Records Department [address] [place] [address] Operative Report - CC Letter MR#: [id number] Acct: [id number] Name: JUNE BECERRA Rep #:[id number] : 1975 49 From: Chapo gudino MD PCP: YVONNE Cárdenas [place] [facility] [place] Yvonne Cárdenas Re : Colonoscopy procedure for June Becerra Dear Nir This procedure was performed on Wednesday, January 08, 2025. My impressions and recommendations are as follows: Impressions : - The entire examined colon is normal on direct and retroflexion views. - No specimens collected. Recommendations : - Discharge patient to home. - Resume previous diet. - Continue present medications. - Repeat colonoscopy in 10 years for screening purposes. My findings are described in the full procedure note, which is enclosed. If I can be of further assistance, please feel free to contact me at Doctor phone number(s): , Work: . Sincerely, Chapo Summers MD 01/08/2025 10:23:46 AM This report has been signed electronically. 01/08/25 1024 Date _ Chapo Gaines Signature: Date (if indicated) CC: SEQUENCING MACHINE OPERATOR-C Farheen Loyola; Dr. Chapo Summers MD ~ Date Dictated: 01/08/25 1002 Date Transcribed: Shift Lab Technician: GIBSON Signed [facility]06-27-2025 History and physical note [facility] Medical Records Department [address] [place] [address] History & Physical Exam 01/08/25 1000 MR#: [id number] Acct: [id number] Name: JUNE BECERRA Rep #:[id number] : 1975 49 From: Chapo gudino MD PCP: YVONNE Cárdenas [place] [facility] [place] [address] HPI - General HPI Narrative JUNE BECERRA, is a 49 F who presents for screening colonoscopy. Patient has never had a colonoscopyin the past. She denies abdominal pain or blood in the stool. She has no family history of colon cancer. [facility] Medical History Loss of hearing Post-menopausal History of ulceration Gastric reflux Non-smoker Anxiety Migraine headache History of hiatal hernia GERD (gastroesophageal reflux disease) Leg cramps Endometrial polyp COVID-19 Hypertension Home Medications ?Medication ?Instructions ?Recorded ?Last Taken ?Type clonazepam 0.5 mg tablet 0.5 mg PO QHS PRN PRN Anxiet y 10/27/14 10/26/14 History lisinopril 10 mg tablet 20 mg PO DAILY 10/27/1412/14 History sumatriptan succinate 100 mg 100 mg PO .X1 PRN 5 10/27/14 History tablet (Imitrex) omeprazole 20 mg capsule,delayed 20 mg PO DAILY 01/08/25 History release berberine chloride 500 mg capsule 500 mg PO DAILY 12/1401/06/25 History cholecalciferol (vitamin D3) 125 125 mcg PO DAILY 12/1401/07/25 History mcg (5,000 unit) tablet (Vitamin D3) cyanocobalamin (B12)-cobamamide 1 bob sublingual DAILY 01/04/25 01/07/25 History 5,000 mcg-100 mcg sublingual lozenge (B12) hydrochlorothiazide 12.5 mg tablet 12.5 mg PO QHS 12/1401/07/25 History potassium chloride 20 mEq oral 20 meq PO DAILY 5 01/05/25 History packet (Klor-Con) vitamin K2 100 mcg capsule 100 mcg PO DAILY 01/04/25 0 01/07/25 History zinc acetate 50 mg (zinc) capsule 50 mg PO DAILY 01/0401/07/25 History Allergy/AdvReac Type Severity Reaction Status Date / Time No Known Allergies Allergy Verified 01/08/25 09:04 Family History Other Cancer Surgical History History of myringotomy History of oophorectomy H/O mastoidectomy History of tonsillectomy and adenoidectomy Social History Smoking Status: Never smoker Past Medical/Surgical History Planned Operation Planned Operative Procedure(s): COLONOSCOPY Previous Hospitalizations/Surgeries HX Hospitalizations: No Any Problems With Anesthesia: No You/Your Family Experience Fever (Hyperthermia) With Anes: No Cholinesterase deficiency: No Cardiovascular Hx of Irregular Heartbeat and/or Afib: No Hx Heart Attack: No Hx Congestive Heart Failure: No Hx Hypertension: Yes (PER PT, CONTROLLED ON MEDS) Hx Pacemaker: No Respiratory Hx Chronic Obstructive Pulmonary Disease (COPD): No Hx Asthma: No Hx Emphysema: No Hx Sleep Apnea: No Hx Respiratory Tract Infection/Cold (presently): No Do You Snore Loudly (louder than talking or can be heard): No Do You Often Feel Tired/ Fatigued/ Sleepy Dring Daytime?: No Has Anyone Observed You Stop Breathing During Sleep?: No Result (for STOP score): Negative Smoking Status: Never smoker Gastrointestinal Hx Ulcer: No Difficulty Chewing/Swallowing: No Neurological Hx Seizures: No Hx Head/Neck Injury: No Hx Headaches: No Hx Back Injury/Pain: No Does patient have nerve stimulator: No Reproduction : No Psycho/Social Hx Anxiety: Yes Miscellaneous Recent Exposure to Contagious Disease: No Allergies No Known Allergies Allergy (Verified 01/08/25 09:04) Discharge Is Pt Admitted From a Senior Care, or a Alf: No Who Could Help: After D/C, Where Do you Plan to Go: Return Home Vital Signs Vital Signs Vital Signs: 01/08/25 09:05 01/08/25 09:05 01/08/25 09:30 Temperature 97.5 F L 97.5 F L Temperature Source Temporal Pulse Rate 74 74 Respiratory Rate 18 18 Respiratory Pattern Normal Blood Pressure 104/55 L 104/55 L Blood Pressure Mean 71 Blood Pressure Source Monitor Blood Pressure Position Semi-Fowlers Blood Pressure Location Left Arm Pulse Ox 100 100 Oxygen Delivery Method Room Air Room Air Weight Weight: 189 lb 9.561 oz Body Mass Index (BMI) 30.6 Physical Exam Const alert and oriented x3 HEENT normocephalic Eyes PERRL Resp normal respiratory effort and normal air movement Cardio regular rate and regular rhythm GI soft to palpation, non-tender and non-distended Extremity normal to inspection Assessment & Plan Assessment/Plan (1) Screen for colon cancer: PLAN: I explained endoscopy in detail to the patient. I explained the risks including but not limited to stroke or heart attack with anesthesia, perforationof the GI tract, bleeding, infection. I explained that any of these could necessitate further emergency surgery. The patient understands and all questions were answered sufficiently. The patient wishes to proceed with procedure. Chapo Summers MD Pager: [facility] [address] [place] [address], [address] [place] [address] Office: Surgery Risks - Colonoscopy Risks Include but are not Limited To: Risks include but are not limited to: Bleeding, perforation requiring further surgery, inability to complete colonoscopy requiring barium enema. 01/08/25 1001 Cosigner Signature (if applicable): CC: YVONNE Loyola; Dr. Chapo Summers MD~ Signed [facility]06-27-2025 Consult note [facility] Medical Records Department [address] [place] [address] Pre-Anesthesia Evaluation 01/08/25924 MR#: [id number] Acct: [id number] Name: JUNE BECERRA Rep #:[id number] : 1975 49 From: Sam Mike MD PCP: PORSHA CárdenasC Status:REG SDC Y Race: C Location: [place] [address]- ASA Classification* ASA Classification ASA Classification: 2 Assessment & Plan Anesthesia* Anesthesia Assessment Anesthesia Assessment: Discussed sedation and/or anesthesia options, risks, benefits, and alternatives with patient/parents/legal guardian/POA. Questions invited. The patient/parents/legal guardian/POA seems to understand and agrees to proceedwith anesthesia plan. Reviewed the physical assessment, medical history, allergy history and patient home medications list prior to surgery/procedure/anesthetic and documented any changes. Performed airway and anesthesia risk assessments. Anesthesia Type Anesthesia Type: MAC History Source History Obtained from:: Patient and Chart Anesthesia Focused Assessment* Temperature: 97.5 F Pulse Rate: 74 Blood Pressure: 104/55 Respiratory Rate: 18 Pulse Ox: 100 Oxygen Delivery Method: Room Air Airway Assessment Mouth opens: >3 cm Mallampati Score: III Teeth Condition: Caps/Crowns (Patient has a couple crowns. They are tight.) andMissing (Patient several missing teeth. Rest of the teeth are tight.) Neck Range of motion (ROM): Full ROM Labs Anesthesia Preop lab: CBC WBC 4.7 K/mm3 (4.4-11.0) 11/13/22 10:51 11/13/22 RBC 4.70 M/mm3 (4.2-5.4) 11/13/22 10:51 11/13/22 Hgb 12.4 g/dL (12.0-15.0) 11/13/22 10:51 11/13/22 Hct 37.8 % (37-47) 11/13/22 10:51 11/13/22 Plt Count 216 K/mm3 (150-450) 11/13/22 10:51 11/13/22 CHEMISTRY Potassium 3.6 mmol/L (3.5-5.1) 11/13/22 10:51 11/13/22 Sodium 141 mmol/L (136-145) 11/13/22 10:51 11/13/22 BUN 10 mg/dL (7-18) 11/13/22 10:51 11/13/22 Creatinine 0.77 mg/dL (0.55-1.02) 11/13/22 10:51 11/13/22 Glucose 92 mg/dL (74-106) 11/13/22 10:51 11/13/22 POC Glucose 78 mg/dL (70-110) 10/27/14 13:50 10/27/14 TSH 2.22 uIU/mL (0.358-3.74) 11/13/22 10:51 COAG PT 14.1 SECONDS (11.7-14.9) 10/27/14 13:44 Urine Test Negative Negative 01/24/23 08:29 01/24/23 Pre-Assessment Diagnosis/Proposed Procedure Planned Operative Procedure(s): COLONOSCOPY Anesthesia History Anesthesia History - front facer: Anesthesia History - front facer Hx Hospitalization No 01/04/25 11:06 Any Problems With Anesthesia No 01/04/25 11:06 Cholinesterase deficiency No 01/04/25 11:06 You/Your Family Experience No 01/04/25 11:06 fever (hyperthermia) with Relationship Recent Exposure to Contagious No 01/08/25 09:05 Disease Does patient have nerve No 01/04/25 11:06 stimulator Patient instructed to have device shut off --Does patient have Pacemaker No 01/08/25 09:05 or ICD? When Was Last Pacemaker Check QUESTION #4 FULL TEXT: You/Your Family Experience fever (hyperthermia) with Anesthesia Last Oral Intake Last Oral intake: Last Oral Intake NPO since 23:30 01/08/25 09:05 Meds taken in AM with sips of water? Meds patient instructed to take am of surgery Any additional information?: Yes Meds taken in AM with sips of water?: Yes Meds patient instructed to take am of surgery: Omeprazole PONV PONV - front facer: PONV - front facer Female Yes 01/04/25 11:06 HX of Motion Sickness No 01/04/25 11:06 HX of N/V After Surgery No 01/04/25 11:06 Non-Smoker Yes 01/04/25 11:06 Duration of Surgery greater No 01/04/25 11:06 than 60 minutes Number of Risk Factors 2 01/04/25 11:06 PONV Score Moderate Risk 01/04/25 11:06 Height & Weight Height & Weight: Anesthesia: Height & Weight Height 5 ft 6 in 01/08/25 09:05 Weight: 86 kg 01/08/25 09:05 Body Mass Index (BMI) 30.6 01/08/25 09:05 Respiratory Assessment Respiratory Assessment - front facer: Respiratory Tract Infection Hx - front facer Hx Respiratory Tract Infection No 01/04/25 11:06 STOP Sleep Apnea STOP Sleep Apnea - front facer: STOP Sleep Apnea - front facer Hx Hypertension Yes: PER PT, CONTROLLED ON 01/04/25 11:06 MEDS Hx Sleep Apnea No 01/04/25 11:06 CPAP BIPAP Do you snore loudly (louder No 01/04/25 11:06 than talking or can be heard Do you often feel tired/ No 01/04/25 11:06 fatigued/ sleepy during daytime? Has anyone observed you stop No 01/04/25 11:06 breathing during sleep? STOP Results Negative 01/04/25 11:06 QUESTION #5 FULL TEXT : Do you snore loudly (louder than talking or can be heard through closeddoors)? 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 Specify any problems Hx of Preganancy in last 3 No 01/04/25 11:06 Months Nurse Filling Out Transfusion MGRIFFITH 01/04/25 11:06 & Questions: Date: 01/04/25 01/04/25 11:06 Time: 11:08 01/04/25 11:06 Patient unable to answer at this time (ie. confused, unrespo /Reproduction History /Reproductive History - front facer: /Reproductive Hx- front facer Hx Now No 01/04/25 11:06 Gestational Age (in weeks): EDC: Hx Hx Para Hx Section SAB No 01/04/25 11:06 Active Medications Active Medications: Current Medications Generic Name Dose Route Start Last Admin Trade Name Freq PRN Reason Stop Dose Admin Lactated Ringer's 1,000 mls @ 15 mls/hr 01/08/25 09:00 01/08/25 09:00 IV 15 mls/hr .Q48H RAJANI Administration PFSH Medical History Loss of hearing Post-menopausal History of ulceration Gastric reflux Non-smoker Anxiety Migraine headache History of hiatal hernia GERD (gastroesophageal reflux disease) Leg cramps Endometrial polyp COVID-19 Hypertension Home Medications ?Medication ?Instructions ?Recorded ?Last Taken ?Type clonazepam 0.5 mg tablet 0.5 mg PO QHS PRN PRN Anxiet y 10/27/14 10/26/14 History lisinopril 10 mg tablet 20 mg PO DAILY 10/27/1412/14 History sumatriptan succinate 100 mg 100 mg PO .X1 PRN 5 10/27/14 History tablet (Imitrex) omeprazole 20 mg capsule,delayed 20 mg PO DAILY 01/08/25 History release berberine chloride 500 mg capsule 500 mg PO DAILY 12/1401/06/25 History cholecalciferol (vitamin D3) 125 125 mcg PO DAILY 12/1401/07/25 History mcg (5,000 unit) tablet (Vitamin D3) cyanocobalamin (B12)-cobamamide 1 bob sublingual DAILY 01/04/25 01/07/25 History 5,000 mcg-100 mcg sublingual lozenge (B12) hydrochlorothiazide 12.5 mg tablet 12.5 mg PO QHS 12/1401/07/25 History potassium chloride 20 mEq oral 20 meq PO DAILY 5 01/05/25 History packet (Klor-Con) vitamin K2 100 mcg capsule 100 mcg PO DAILY 01/04/25 0 01/07/25 History zinc acetate 50 mg (zinc) capsule 50 mg PO DAILY 01/0401/07/25 History Allergy/AdvReac Type Severity Reaction Status Date / Time No Known Allergies Allergy Verified 01/08/25 09:04 Family History (Reviewed 01/08/25 @ 09: by Dr. Sam Mike MD) Other Cancer Surgical History (Reviewed 01/08/25 @ 09: by Dr. Sam Mike MD) History of myringotomy History of oophorectomy H/O mastoidectomy History of tonsillectomy and adenoidectomy Social History (Reviewed 01/08/25 @ 09: by Dr. Sam Mike MD) Smoking Status: Never smoker Review of Systems (Anesthesia) ROS Narrative System reviewed and no additional complaints, except as documented. 01/08/25931 brodie ANGULO> Date _ Sam Mike MD Cosigner Signature: Date CC: ~ Signed [facility]08-13-2024 History of Present illness Narrative* Tianna Geronimo RDMS - 02/25/2024 2:30 PM EDT Radiology Service Progress Note PATIENT NAME: June Becerra DATE OF SERVICE: February 25, 2024 TIME: 2:51 PM PATIENT IDENTITY VERIFICATION COMPLETED USING TWO (2) IDENTIFIERS: Name and Date of confirmedby patient verbally. FALL SCREENING: Has the patient had 2 falls in the last year or 1 fall with injury or currently using an Ambulatory Assistive Device (Walker, Cane, Wheelchair, Crutches, etc.)? No PATIENT GENDER DATA: Female. status: : No status: NO. PATIENT RELEVANT IMPLANT DATA REVIEWED: Not Applicable PATIENT PRESENTS WITH AN IMPLANTABLE OR ATTACHED CATERING OPERATIONS MANAGER: No RADIOLOGY DEPARTMENT: Ultrasound PERIPHERAL IV DATA: Not applicable SIGNED BY: Tianna Geronimo RDMS [facility] February 25, 2024 2:51 PM [facility] NoteHNO ID: [id number] Author: TIANNA GERONIMO RDMS Service: ? Author Type: Check Totaler Type: Progress Notes Filed: 02/25/2024 14:51 Note Text: Radiology Service Progress Note PATIENT NAME: June Becerra DATE OF SERVICE: February 25, 2024 TIME: 2:51 PM PATIENT IDENTITY VERIFICATION COMPLETED USING TWO (2) IDENTIFIERS: Name and Date of confirmed by patient verbally. FALL SCREENING: Has the patient had 2 falls in the last year or 1 fall with injury or currently using an Ambulatory Assistive Device (Walker, Cane, Wheelchair, Crutches, etc.)? No PATIENT GENDER DATA: Female. status: : No status: NO. PATIENT RELEVANT IMPLANT DATA REVIEWED: Not Applicable PATIENT PRESENTS WITH AN IMPLANTABLE OR ATTACHED CATERING OPERATIONS MANAGER: No RADIOLOGY DEPARTMENT: Ultrasound PERIPHERAL IV DATA: Not applicable SIGNED BY: Tianna Geronimo RDMS RVT February 25, 2024 2:51 [facility]* Letter - Coordinator, Mammography - 01/20/2024 4:39 PM EDT January 20, 2024 PID: [id number] June Becerra [address] [place] [address] Dear Ms. Becerra, Your recent breast imaging exam on 01/17/2024 showed a possible finding that requires additional imaging studies for a complete evaluation. Most such findings are probably benign (not cancer). If you have a healthcare provider who ordered/prescribed your screening mammogram: Please call [phone] or EXT: [phone] to schedule an appointment for your additional imaging (if youhave not already done so). If you DO NOT have a healthcare provider (ie you did not have an order/prescription for your screening mammogram): Please call to schedule an appointment for your additional imaging (if you have not already done so). You must have an order/prescription from your physician when calling to schedule your appointment. If your order/prescription is not electronic, you must bring the hard copy with you on the day of your exam to avoid delays. Your imaging studies and reports are kept [facility] as part of your permanent medical record, and are available for your continuing care. Thank you for allowing us to help in meeting your health care needs. Sincerely, Dr. Arzate Interpreting Radiologist [facility] (Additional imaging) [facility]07-08-2024 Miscellaneous Notes* Letter - Coordinator, Mammography - 01/20/2024 4:39 PM EDT January 20, 2024 PID: [id number] June MackAlfreda Becerra [address] [place] [address] Dear Mariam, Your recent breast imaging exam on 01/17/2024 showed a possible finding that requires additional imaging studies for a complete evaluation. Most such findings are probably benign (not cancer). If you have a healthcare provider who ordered/prescribed your screening mammogram: Please call [phone] or EXT: [phone] to schedule an appointment for your additional imaging (if youhave not already done so). If you DO NOT have a healthcare provider (ie you did not have an order/prescription for your screening mammogram): Please call to schedule an appointment for your additional imaging (if you have not already done so). You must have an order/prescription from your physician when calling to schedule your appointment. If your order/prescription is not electronic, you must bring the hard copy with you on the day of your exam to avoid delays. Your imaging studies and reports are kept on file at [facility] as part of your permanent medical record, and are available for your continuing care. Thank you for allowing us to help in meeting your health care needs. Sincerely, Dr. Arzate Interpreting Radiologist [facility] (Additional imaging) documented in this encounterM[facility]07-[facility]24 Instructions* Patient Instructions* Tianna Ko APRN.CNM - 01/17/2024 3:59 PM EDT Berberine 400 mg three times daily NAC is typically taken at a dose of 600 mg three times/day. I recommend taking it for a minimum of 24 weeks (close to 6 months). If you experience symptom improvement, it s a very safe supplement that can be taken on an ongoing basis if needed. NAC (J-cbixmp-elmpfaty) is a naturally occurring detox chemical in our bodies, and supplementation has also been shown to improve insulin resistance documented [facility]24 NoteHNO ID: [id number] Author: TIANNA KO APRN.CNM Service: ? Author Type: Visitor Services Technician Type: Progress Notes Filed: 01/17/2024 16:05 Note Text: June is a 48 year old who presents for an annual gynecologic exam without complaints. Menses: postmenopausal, LMP 10/2022 Patient underwent hysteroscopy DANDC for endometrial thickening, abnormal uterine bleeding is suspected endometrial polyp. No discrete polyp noted on exam. Visual DANDC completed. Pathology negative Contraception: none-vasectomy, postmenopausal HPV vaccine: N/A Last Pap: 07/13/2020 normal HPV: 07/11/2020 negative History of abnormal pap: No Last mammogram:12/28/2022, 01/17/2024 Sexually active: Yes Time with current partner: 31 years Pain with intercourse: No Postcoital bleeding: No Hot flashes: Yes, Ashwaganda supplement and working Night sweats: No Vaginal dryness: Yes, using KY jelly and this is working Mood swings: No Insomnia: No Exercise: Walking Diet: Regular diet Seatbelt use: Yes OB History T0 L2 SAB0 IAB0 Ectopic0 Multiple0 Live Births0 Station Operator History LMP: 10/13/2022 (Approximate), Having periods Age at Menarche: Age at First : Age at Menopause: Station Operator History Comments: Sexual Activity: Yes; Male Contraception: Vasectomy PAST MEDICAL HISTORY Diagnosis Date 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 Sam, [place] Elevated blood pressure Essential hypertension, benign Esophageal reflux see hiatal hernia Hearing loss Mainly in Left Ear Other forms of migraine age mid 20's menstrual Panic disorder without agoraphobia see old records Anxiety state Simple or unspecified chronic serous otitis media 2001 see surgical history, tymp tube PAST SURGICAL HISTORY Procedure Laterality Date EXTRACTION, ERUPTED TOOTH OR EXPOSED ROOT (ELEVATION AND/OR FORCEPS REMOVAL) wisdom HYSTEROSCOPY BX ENDOMETRIUMAND/POLYPC W/WO DANDC 01/24/2023 hysteroscopy [facility] for AUB MYRINGOTOMY ASPIRAND/EUSTACHIAN TUBE NFLTJ ANES 2001, [place] RIGHT Myringotomy/tubes OOPHORECTOMY PARTIAL/TOTAL UNI/BI 11/11/[address] Artis at [facility] PAST SURGICAL HISTORY OF 2001, same as below LEFT mastoidectomy (Dr. Zhong) TONSILLECTOMY AND ADENOIDECTOMY FAMILY HISTORY Problem Relation Age of Onset other (ovarian cancer) Mother mid 40's other (Other) Father Unknown Headache Sister migraine No Known Problems Brother Breast Cancer Maternal Grandmother age late 60's Alcohol/Drug Maternal Grandfather No Known Problems Daughter No Known Problems Son Cervical Cancer Maternal Aunt Breast Cancer Maternal Aunt other (Brain Tumor) Maternal Aunt from this SOCIAL HISTORY Social History Tobacco Use Smoking status: Never Smokeless tobacco: Never Vaping Use Vaping Use: Never used Substance Use Topics Alcohol use: No Drug use: No REVIEW OF SYSTEMS Abdomen: No abdominal pain, nausea, vomiting, diarrhea, or constipation. No bloating, early satiety, indigestion, or increased flatulence. Bladder: No dysuria, gross hematuria, urinary frequency, urinary urgency, or incontinence. Breast: No breast lumps, nipple d/c, overlying skin changes, redness or skin retraction. Allergies and current medication updated:Yes EXAM: LMP 10/13/2022 BP 122/78 Ht 167.6 cm (5' 6) Wt 90.3 kg (199 lb) LMP 10/13/2022 (Approximate) BMI 32.12 kg/m? GENERAL: pleasant, female in no apparent distress HEENT: Normocephalic, atraumatic, mucus membranes moist, and no lesions NECK: Supple, full range of motion, no adenopathy, and thyroid normal DERMATOLOGY: Normal, without lesions, non-icteric, and non-hirsute BREAST: soft, non-tender, symmetric, no dominant mass, normal nipple-areolar complex, no lymphadenopathy, and no nipple discharge CHEST: Clear to auscultation, Normal inspiratory effort, Regular rate and rhythm, and No murmurs, clicks, rubs or gallops ABDOMEN: soft, non-tender, and no masses PELVIC: external genitalia normal, normal Bartholin's glands, urethra, [place]'s glands, no vulvar lesions, no cervical lesions, good vaginal support, physiologic discharge present, normal appearing perineal body and perianal region BIMANUAL: uterus normal size, shape and consistency, no adnexal masses, and non-tender RECTOVAGINAL: deferred. NEURO: alert and oriented x3,exam grossly non-focal EXTREMITIES: normal ASSESSMENT/PLAN: 1. Encounter for gynecological examination (general) (routine) without abnormal findings - ICD9: V72.31, ICD10: Z01.419 (primary diagnosis) - Completed pelvic and breast exam - Encouraged monthly BSE - Follow up for annual exam in one year. 2. Encounter for screening mammogram for breast cancer - ICD9: V76.12, ICD10: Z12.31 - Completed pelvic and breast exam - Encouraged monthly BSE - Follow up for annual e (more content not included)...[facility]07-05-2024 History of Present illness Narrative* Tianna Ko APRN.JAIME - 01/17/2024 3:36 PM EDT June is a 48 year old who presents for an annual gynecologic exam without complaints. Menses: postmenopausal, LMP 10/2022 Patient underwent hysteroscopy D&C for endometrial thickening, abnormal uterine bleeding is suspected endometrial polyp. No discrete polyp noted on exam. Visual D&C completed. Pathology negative Contraception: none-vasectomy, postmenopausal HPV vaccine: N/A Last Pap: 07/13/2020 normal HPV: 07/11/2020 negative History of abnormal pap: No Last mammogram:12/28/2022, 01/17/2024 Sexually active: Yes Time with current partner: 31 years Pain with intercourse: No Postcoital bleeding: No Hot flashes: Yes, Ashwaganda supplement and working Night sweats: No Vaginal dryness: Yes, using KY jelly and this is working Mood swings: No Insomnia: No Exercise: Walking Diet: Regular diet Seatbelt use: Yes OB History T0 L2 SAB0 IAB0 Ectopic0 Multiple0 Live Births0 Station Operator History LMP: 10/13/2022 (Approximate), Having periods Age at Menarche: Age at First : Age at Menopause: Station Operator History Comments: Sexual Activity: Yes; Male Contraception: Vasectomy PAST MEDICAL HISTORY Diagnosis Date 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 Sam, [place] Elevated blood pressure Essential hypertension, benign Esophageal reflux see hiatal hernia Hearing loss Mainly in Left Ear Other forms of migraine age mid 20's menstrual Panic disorder without agoraphobia see old records Anxiety state Simple or unspecified chronic serous otitis media 2001 see surgical history, tymp tube PAST SURGICAL HISTORY Procedure Laterality Date EXTRACTION, ERUPTED TOOTH OR EXPOSED ROOT (ELEVATION AND/OR FORCEPS REMOVAL) wisdom HYSTEROSCOPY BX ENDOMETRIUM&/POLYPC W/WO D&C 01/24/2023 hysteroscopy D&C for AUB MYRINGOTOMY ASPIR&/EUSTACHIAN TUBE [facility] 2001, Karrie RIGHT Myringotomy/tubes OOPHORECTOMY PARTIAL/TOTAL UNI/BI 11/11/[address] Artis at [facility] PAST SURGICAL HISTORY OF 2001, same as below LEFT mastoidectomy (Dr. Zhong) TONSILLECTOMY & ADENOIDECTOMY <AGE 11 age 8 FAMILY HISTORY Problem Relation Age of Onset other (ovarian cancer) Mother mid 40's other (Other) Father Unknown Headache Sister migraine No Known Problems Brother Breast Cancer Maternal Grandmother age late 60's Alcohol/Drug Maternal Grandfather No Known Problems Daughter No Known Problems Son Cervical Cancer Maternal Aunt Breast Cancer Maternal Aunt other (Brain Tumor) Maternal Aunt from this SOCIAL HISTORY Social History Tobacco Use Smoking status: Never Smokeless tobacco: Never Vaping Use Vaping Use: Never used Substance Use Topics Alcohol use: No Drug use: No REVIEW OF SYSTEMS Abdomen: No abdominal pain, nausea, vomiting, diarrhea, or constipation. No bloating, early satiety, indigestion, or increased flatulence. Bladder: No dysuria, gross hematuria, urinary frequency, urinary urgency, or incontinence. Breast: No breast lumps, nipple d/c, overlying skin changes, redness or skin retraction. Allergies and current medication updated:Yes EXAM: LMP 10/13/2022 BP 122/78 Ht 167.6 cm (5' 6) Wt 90.3 kg (199 lb) LMP 10/13/2022 (Approximate) BMI 32.12 kg/m GENERAL: pleasant, female in no apparent distress HEENT: Normocephalic, atraumatic, mucus membranes moist, and no lesions NECK: Supple, full range of motion, no adenopathy, and thyroid normal DERMATOLOGY: Normal, without lesions, non-icteric, and non-hirsute BREAST: soft, non-tender, symmetric, no dominant mass, normal nipple-areolar complex, no lymphadenopathy, and no nipple discharge CHEST: Clear to auscultation, Normal inspiratory effort, Regular rate and rhythm, and No murmurs, clicks, rubs or gallops ABDOMEN: soft, non-tender, and no masses PELVIC: external genitalia normal, normal Bartholin's glands, urethra, [place]'s glands, no vulvar lesions, no cervical lesions, good vaginal support, physiologic discharge present, normal appearing perineal body and perianal region BIMANUAL: uterus normal size, shape and consistency, no adnexal masses, and non-tender RECTOVAGINAL: deferred. NEURO: alert and oriented x3,exam grossly non-focal EXTREMITIES: normal ASSESSMENT/PLAN: 1. Encounter for gynecological examination (general) (routine) without abnormal findings - ICD9: V72.31, ICD10: Z01.419 (primary diagnosis) - Completed pelvic and breast exam - Encouraged monthly BSE - Follow up for annual exam in one year. 2. Encounter for screening mammogram for breast cancer - ICD9: V76.12, ICD10: Z12.31 - Completed pelvic and breast exam - Encouraged monthly BSE - Follow up for annual exam in one year. - JOSE A SCREENING W ELINOR 3. Dense breast tissue - ICD9: 793.82, ICD10: R92.2 - JOSE A SCREENING W ELINOR 4. Postmenopausal Z78.0 5. Family history of malignant neoplasm of breast - ICD9: V16.3, ICD10: Z80.3 Family history of breast and ovarian cancer- discussed genetic counseling referral. Has removal of right ovary. Discussed recommend this due to family history for discussion with genetic counselor ifgenetic testing would be an option and follow up. She declines at this time and states she does notwant to know current genetic status for breast or ovarian cance 6. Family history of ovarian cancer - ICD9: V16.41, ICD10: Z80.4 Family history of breast and ovarian cancer- discussed genetic counseling referral. Has removal of right ovary. Discussed recommend this due to family history for discussion with genetic counselor ifgenetic testing would be an option and follow up. She declines at this time and states she does notwant to know current genetic status for breast or ovarian cancer. 1) Health maintenance: Pap/HPV up to date. Mammogram ordered. Nutrition, exercise and routine health maintenance exams reviewed. Colon cancer screening: patient to discuss with PCP Lipids/glucose: followed by PCP Vitamin D: followed by PCP 2) Contraception: none. Contraceptive options reviewed and information provided. 3) STD screening: Declined STD check. 4) Follow up one year or sooner as needed Tianna Ko APRN.CNM [facility] History of Present illness Narrative* Sapphire Mendoza RT(R) - 01/17/2024 2:50 PM EDT Radiology Service Progress Note PATIENT NAME: June Becerra DATE OF SERVICE: January 17, 2024 TIME: 1:51 PM PATIENT IDENTITY VERIFICATION COMPLETED USING TWO (2) IDENTIFIERS: Name and Date of confirmedby patient verbally. FALL SCREENING: Has the patient had 2 falls in the last year or 1 fall with injury or currently using an Ambulatory Assistive Device (Walker, Cane, Wheelchair, Crutches, etc.)? No PATIENT GENDER DATA: Female. status: : No status: NO. PATIENT RELEVANT IMPLANT DATA REVIEWED: Not Applicable PATIENT PRESENTS WITH AN IMPLANTABLE OR ATTACHED CATERING OPERATIONS MANAGER: No RADIOLOGY DEPARTMENT: Mammography PERIPHERAL IV DATA: Not applicable SIGNED BY: RT Jamir(R) January 17, 2024 1:51 PM documented in this encounter[facility]07-[facility]-2024 NoteHNO ID: [id number] Author: SAPPHIRE MENDOZA RT(R) Service: ? Author Type: Technologist Type: Progress Notes Filed: 01/17/2024 13:51 Note Text: Radiology Service Progress Note PATIENT NAME: June Becerra DATE OF SERVICE: January 17, 2024 TIME: 1:51 PM PATIENT IDENTITY VERIFICATION COMPLETED USING TWO (2) IDENTIFIERS: Name and Date of confirmed by patient verbally. FALL SCREENING: Has the patient had 2 falls in the last year or 1 fall with injury or currently using an Ambulatory Assistive Device (Walker, Cane, Wheelchair, Crutches, etc.)? No PATIENT GENDER DATA: Female. status: : No status: NO. PATIENT RELEVANT IMPLANT DATA REVIEWED: Not Applicable PATIENT PRESENTS WITH AN IMPLANTABLE OR ATTACHED CATERING OPERATIONS MANAGER: No RADIOLOGY DEPARTMENT: Mammography PERIPHERAL IV DATA: Not applicable SIGNED BY: RT Jamir(R) January 17, 2024 1:51 [facility]07-14-2023 History of Present illness Narrative* Marissa Wells MD - 01/25/2023 12:04 PM EDT Patient underwent hysteroscopy D&C for endometrial thickening, abnormal uterine bleeding is suspected endometrial polyp. No discrete polyp noted on exam. Visual D&C completed. Pathology is pending. Marissa Wells MD documented in this encounterM[facility]06-28-2023 Miscellaneous Notes* Telephone Encounter - Leigha Joseph LPN - 01/09/2023 1:51 PM EDT Noted. * Telephone Encounter - Marissa Wells MD - 01/08/2023 8:35 AM EDT I am ok w/ scheduling her and make sure I have 20-30 min slot for preop so can do consult same day.Thanks. Marissa Wells MD * Telephone Encounter - Erin Fry RN - 01/07/2023 5:[address] Wells please see Tianna Ko's note below. Patient would like you to do hysteroscopy.. Do You need to see her prior to scheduling surgery to discuss. Pt comfortable with going forward with scheduling. Patient states that January is open. Her birthday is in [birth year]. She said she doesn't have to avoid that day. I transferred patient to schedule repeat ultrasound .Surgery sheet to Dr Wells * Telephone Encounter - Erin Fry RN - 01/07/2023 5:12 PM EDT ----- Message from Tianna Ko APRN.CNM sent at 01/07/2023 4:51 PM EDT ----- Please inform patient recommend hysteroscopy evaluation. Please get surgery sheet and available provider for management. Follow up US to be scheduled in 6 months. Tianna Ko APRN.CNM documented in this encounterM[facility]06-19-2023 Miscellaneous Notes* Letter - Mammography Coordinator - 12/31/2022 9:09 AM EDT January 01, 2023 PID: [id number] June Becerra [address] [place] [address] Dear Ms. Becerra, We are pleased to inform you that the results of your recent breast imaging exam on 12/28/2022 are normal. Early detection of cancer is very important. We also understand recommendations regarding breast cancer screening are controversial. Please discuss with your primary care provider which strategy is best for you and whether a mammogram is right for you. Your imaging studies and report will be kept [facility] as part of your permanent medical record and are available for your continuing care. Thank you for allowing us to help in meeting your health care needs. Sincerely, Dr. Terrell Interpreting Radiologist [facility] (Normal over 40) documented in this encounterM[facility]06-16-2023 History of Present illness Narrative* Tianna Ko APRN.CNM - 12/28/2022 2:34 PM EDT Concrete Mixer Operator offered: Patient declines. June is a 47 year old who presents for an annual gynecologic exam without complaints. Menses: LMP 06/01/21 then went one full year without this. Then 5 months after had bleeding. Nothing since. Contraception: vasectomy HPV vaccine: No Last Pap: 07/13/2020 normal HPV: 07/11/2020 negative History of abnormal pap: No Last mammogram: 2021, repeat today Sexually active: Yes Pain with intercourse: No Postcoital bleeding: No Hot flashes: Yes, coping Night sweats: No Vaginal dryness: yes at times Exercise: treadmill couple times a week Diet: Regular Seatbelt use: Yes OB History T0 L2 SAB0 IAB0 Ectopic0 Multiple0 Live Births0 Station Operator History LMP: 10/13/2022 (Approximate), Having periods Age at Menarche: Age at First : Age at Menopause: Station Operator History Comments: Sexual Activity: Yes; Male Contraception: Vasectomy PAST MEDICAL HISTORY Diagnosis Date Congenital hiatus hernia 01/06/03 Dr. Sam, [place] Elevated blood pressure Essential hypertension, benign Esophageal reflux see hiatal hernia Hearing loss Mainly in Left Ear Other forms of migraine age mid 20's menstrual Panic disorder without agoraphobia see old records Anxiety state Simple or unspecified chronic serous otitis media see surgical history, tymp tube PAST SURGICAL HISTORY Procedure Laterality Date EXTRACTION, ERUPTED TOOTH OR EXPOSED ROOT (ELEVATION AND/OR FORCEPS REMOVAL) wisdom MYRINGOTOMY ASPIR&/EUSTACHIAN TUBE [facility] 2001, Karrie RIGHT Myringotomy/tubes OOPHORECTOMY PARTIAL/TOTAL UNI/BI 11/11/[address] Artis at [facility] PAST SURGICAL HISTORY OF 2001, same as below LEFT mastoidectomy (Dr. Zhong) TONSILLECTOMY & ADENOIDECTOMY <AGE 11 age 8 FAMILY HISTORY Problem Relation Age of Onset other (ovarian cancer) Mother mid 40's other (Other) Father Unknown Headache Sister migraine No Known Problems Brother Breast Cancer Maternal Grandmother age late 60's Alcohol/Drug Maternal Grandfather No Known Problems Daughter No Known Problems Son Cervical Cancer Maternal Aunt Breast Cancer Maternal Aunt other (Brain Tumor) Maternal Aunt from this SOCIAL HISTORY Social History Tobacco Use Smoking status: Never Smokeless tobacco: Never Vaping Use Vaping Use: Never used Substance Use Topics Alcohol use: No Drug use: No REVIEW OF SYSTEMS Abdomen: No abdominal pain, nausea, vomiting, diarrhea, or constipation. No bloating, early satiety, indigestion, or increased flatulence. Bladder: No dysuria, gross hematuria, urinary frequency, urinary urgency, or incontinence. Breast: No breast lumps, nipple d/c, overlying skin changes, redness or skin retraction. Allergies and current medication updated:Yes EXAM: BP 126/78 Ht 5' 8 (1.73m) Wt 196 lb (88.9kg) LMP 10/13/2022 BMI 29.81 kg/(m^2). GENERAL: pleasant, female in no apparent distress HEENT: Normocephalic, atraumatic, mucus membranes moist, and no lesions NECK: Supple, full range of motion, no adenopathy, and thyroid normal DERMATOLOGY: Normal, without lesions, non-icteric, and non-hirsute BREAST: soft, non-tender, symmetric, no dominant mass, normal nipple-areolar complex, no lymphadenopathy, and no nipple discharge CHEST: Normal inspiratory effort ABDOMEN: soft, non-tender, and no masses PELVIC: external genitalia normal, normal Bartholin's glands, urethra, [place]'s glands, no vulvar lesions, no cervical lesions, good vaginal support, physiologic discharge present, normal appearing perineal body and perianal region BIMANUAL: uterus normal size, shape and consistency, no adnexal masses, and non-tender RECTOVAGINAL: deferred. NEURO: alert and oriented x3,exam grossly non-focal EXTREMITIES: normal ASSESSMENT/PLAN: 1. Encounter for gynecological examination (general) (routine) without abnormal findings - ICD9: V72.31, ICD10: Z01.419 (primary diagnosis) - Completed pelvic and breast exam - Encouraged monthly BSE - Follow up for annual exam in one year. 2. Encounter for screening mammogram for breast cancer - ICD9: V76.12, ICD10: Z12.31 - Completed pelvic and breast exam - Encouraged monthly BSE - Follow up for annual exam in one year. - JOSE A SCREENING W ELINOR 3. Dense breast tissue - ICD9: 793.82, ICD10: R92.2 - JOSE A SCREENING W ELINOR 4. Postmenopausal bleeding - ICD9: 627.1, ICD10: N95.0 - PELVIC US WHI 5. Family history of malignant neoplasm of breast - ICD9: V16.3, ICD10: Z80.3 6. Family history of ovarian cancer - ICD9: V16.41, ICD10: Z80.4 Family history of breast and ovarian cancer- discussed genetic counseling referral. Has removal of right ovary. Discussed recommend this due to family history for discussion with genetic counselor ifgenetic testing would be an option and follow up. She declines at this time and states she does notwant to know current genetic status for breast or ovarian cancer. Mammogram with tomography orderedand discussed to check with insurance. 1) Health maintenance: Pap/HPV up to date. Mammogram up to date . Nutrition, exercise and routine health maintenance exams reviewed. Calcium/Vitamin D supplementation information provided. Lipids/glucose: followed by PCP Vitamin D: followed by PCP 2) Contraception: none. Contraceptive options reviewed and information provided. 3) STD screening: Declined STD check. 4) Follow up one year or sooner as needed Tianna Ko APRN.CNM documented in this encounterM[facility]02-20-2009 History of Past illness Narrative* Problem Noted Date Diagnosed Date Resolved Date ABSENCE OF RIGHT OVARY 09/03/200801/17 Overview: Incidental finding on u/s 08/2008; No prior to compare Routine gynecological examination 09/01/2008 01/17/2023 [facility] Diaphragmatic hernia without mention of obstruction or gangrene 09/26/2006 01/17/2023 Simple or unspecified chroni c serous otitis media 01/17/2023 Overview: see surgical history, tymp tube Other forms of migraine 12/2022 Overview: menstrual documented as of this encounter (statuses as of 01/25/2023) [facility] Author Sam Mike [facility] Note Date/Time January 08, 2025 9:32 am [facility] Medical Records Department [address] [place] [address] Pre-Anesthesia Evaluation 01/08/25 0925 MR#: [id number] Acct: [id number] Name: JUNE BECERRA Rep #:[id number] : 1975 49 From: Sam Mike MD PCP: YVONNE Cárdenas Status:REG SDC Y Race: C Location: [place] [address] ASA Classification* ASA Classification ASA Classification: 2 Assessment & Plan Anesthesia* Anesthesia Assessment Anesthesia Assessment: Discussed sedation and/or anesthesia options, risks, benefits, and alternatives with patient/parents/legal guardian/POA. Questions invited. The patient/parents/legal guardian/POA seems to understand and agrees to proceedwith anesthesia plan. Reviewed the physical assessment, medical history, allergy history and patient home medications list prior to surgery/procedure/anesthetic and documented any changes. Performed airway and anesthesia risk assessments. Anesthesia Type Anesthesia Type: MAC History Source History Obtained from:: Patient and Chart Anesthesia Focused Assessment* Temperature: 97.5 F Pulse Rate: 74 Blood Pressure: 104/55 Respiratory Rate: 18 Pulse Ox: 100 Oxygen Delivery Method: Room Air Airway Assessment Mouth opens: >3 cm Mallampati Score: III Teeth Condition: Caps/Crowns (Patient has a couple crowns. They are tight.) andMissing (Patient several missing teeth. Rest of the teeth are tight.) Neck Range of motion (ROM): Full ROM Labs Anesthesia Preop lab: CBC WBC 4.7 K/mm3 (4.4-11.0) 11/13/22 10:51 11/13/22 RBC 4.70 M/mm3 (4.2-5.4) 11/13/22 10:51 11/13/22 Hgb 12.4 g/dL (12.0-15.0) 11/13/22 10:51 11/13/22 Hct 37.8 % (37-47) 11/13/22 10:51 11/13/22 Plt Count 216 K/mm3 (150-450) 11/13/22 10:51 11/13/22 CHEMISTRY Potassium 3.6 mmol/L (3.5-5.1) 11/13/22 10:51 11/13/22 Sodium 141 mmol/L (136-145) 11/13/22 10:51 11/13/22 BUN 10 mg/dL (7-18) 11/13/22 10:51 11/13/22 Creatinine 0.77 mg/dL (0.55-1.02) 11/13/22 10:51 11/13/22 Glucose 92 mg/dL (74-106) 11/13/22 10:51 11/13/22 POC Glucose 78 mg/dL (70-110) 10/27/14 13:50 10/27/14 TSH 2.22 uIU/mL (0.358-3.74) 11/13/22 10:51 COAG PT 14.1 SECONDS (11.7-14.9) 10/27/14 13:44 Urine Test Negative Negative 01/24/23 08:29 01/24/23 Pre-Assessment Diagnosis/Proposed Procedure Planned Operative Procedure(s): COLONOSCOPY Anesthesia History Anesthesia History - front facer: Anesthesia History - front facer Hx Hospitalization No 01/04/25 11:06 Any Problems With Anesthesia No 01/04/25 11:06 Cholinesterase deficiency No 01/04/25 11:06 You/Your Family Experience No 01/04/25 11:06 fever (hyperthermia) with Relationship Recent Exposure to Contagious No 01/08/25 09:05 Disease Does patient have nerve No 01/04/25 11:06 stimulator Patient instructed to have device shut off --Does patient have Pacemaker No 01/08/25 09:05 or ICD? When Was Last Pacemaker Check QUESTION #4 FULL TEXT: You/Your Family Experience fever (hyperthermia) with Anesthesia Last Oral Intake Last Oral intake: Last Oral Intake NPO since 23:30 01/08/25 09:05 Meds taken in AM with sips of water? Meds patient instructed to take am of surgery Any additional information?: Yes Meds taken in AM with sips of water?: Yes Meds patient instructed to take am of surgery: Omeprazole PONV PONV - front facer: PONV - front facer Female Yes 01/04/25 11:06 HX of Motion Sickness No 01/04/25 11:06 HX of N/V After Surgery No 01/04/25 11:06 Non-Smoker Yes 01/04/25 11:06 Duration of Surgery greater No 01/04/25 11:06 than 60 minutes Number of Risk Factors 2 01/04/25 11:06 PONV Score Moderate Risk 01/04/25 11:06 Height & Weight Height & Weight: Anesthesia: Height & Weight Height 5 ft 6 in 01/08/25 09:05 Weight: 86 kg 01/08/25 09:05 Body Mass Index (BMI) 30.6 01/08/25 09:05 Respiratory Assessment Respiratory Assessment - front facer: Respiratory Tract Infection Hx - front facer Hx Respiratory Tract Infection No 01/04/25 11:06 STOP Sleep Apnea STOP Sleep Apnea - front facer: STOP Sleep Apnea - front facer Hx Hypertension Yes: PER PT, CONTROLLED ON 01/04/25 11:06 MEDS Hx Sleep Apnea No 01/04/25 11:06 CPAP BIPAP Do you snore loudly (louder No 01/04/25 11:06 than talking or can be heard Do you often feel tired/ No 01/04/25 11:06 fatigued/ sleepy during daytime? Has anyone observed you stop No 01/04/25 11:06 breathing during sleep? STOP Results Negative 01/04/25 11:06 QUESTION #5 FULL TEXT : Do you snore loudly (louder than talking or can be heard through closed doors)? 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 Specify any problems Hx of Preganancy in last 3 No 01/04/25 11:06 Months Nurse Filling Out Transfusion MGRIFFITH 01/04/25 11:06 & Questions: Date: 01/04/25 01/04/25 11:06 Time: 11:08 01/04/25 11:06 Patient unable to answer at this time (ie. confused, unrespo /Reproduction History /Reproductive History - front facer: /Reproductive Hx- front facer Hx Now No 01/04/25 11:06 Gestational Age (in weeks): EDC: Hx Hx Para Hx Section SAB No 01/04/25 11:06 Active Medications Active Medications: Current Medications Generic Name Dose Route Start Last Admin Trade Name Freq PRN Reason Stop Dose Admin Lactated Ringer's 1,000 mls @ 15 mls/hr 01/08/25 09:00 01/08/25 09:00 IV 15 mls/hr .Q48H RAJANI Administration PFSH Medical History Loss of hearing Post-menopausal History of ulceration Gastric reflux Non-smoker Anxiety Migraine headache History of hiatal hernia GERD (gastroesophageal reflux disease) Leg cramps Endometrial polyp COVID-19 Hypertension Home Medications ?Medication ?Instructions ?Recorded ?Last Taken ?Type clonazepam 0.5 mg tablet 0.5 mg PO QHS PRN PRN Anxiet y 10/27/14 10/26/14 History lisinopril 10 mg tablet 20 mg PO DAILY 10/27/1412/14 History sumatriptan succinate 100 mg 100 mg PO .X1 PRN 5 10/27/14 History tablet (Imitrex) omeprazole 20 mg capsule,delayed 20 mg PO DAILY 01/08/25 History release berberine chloride 500 mg capsule 500 mg PO DAILY 12/1401/06/25 History cholecalciferol (vitamin D3) 125 125 mcg PO DAILY 12/1401/07/25 History mcg (5,000 unit) tablet (Vitamin D3) cyanocobalamin (B12)-cobamamide 1 bob sublingual DAILY 01/04/25 01/07/25 History 5,000 mcg-100 mcg sublingual lozenge (B12) hydrochlorothiazide 12.5 mg tablet 12.5 mg PO QHS 12/1401/07/25 History potassium chloride 20 mEq oral 20 meq PO DAILY 5 01/05/25 History packet (Klor-Con) vitamin K2 100 mcg capsule 100 mcg PO DAILY 01/04/25 0 01/07/25 History zinc acetate 50 mg (zinc) capsule 50 mg PO DAILY 01/0401/07/25 History Allergy/AdvReac Type Severity Reaction Status Date / Time No Known Allergies Allergy Verified 01/08/25 09:04 Family History Other Cancer Surgical History History of myringotomy History of oophorectomy H/O mastoidectomy History of tonsillectomy and adenoidectomy Social History Smoking Status: Never smoker Review of Systems (Anesthesia) ROS Narrative System reviewed and no additional complaints, except as documented. 01/08/25 09 <Electronically signed by Sam calloway MD> Date _ Sam Mike MD Cosigner Signature: Date CC: ~ Signed [facility] Work Phone: Consult note Author Yudelka Palm [facility] Note Date/Time January 08, 2025 11:1 1am [facility] Medical Records Department [address] [place] [address] Anesthesia Postop Eval I 01/08/25 1027 MR#: [id number] Acct: [id number] Name: JUNE BECERRA Rep #:[id number] : 1975 49 From: Yudelka Palm CRNA PCP: YVONNE Cárdenas Status:REG SDC Y Race: C Location: [place] [address] Anesthesia: Postop Eval I Current Vital Signs Temperature: 97.8 F Pulse Rate: 73 Blood Pressure: 99/72 Respiratory Rate: 20 Pulse Ox: 99 Assessment Airway patent: Yes Spontaneous unlabored respirations: Yes nausea: No Vomiting: No Anesthesia Complication: No Fluid Hydration Crystalloid volume administer (ml): 500 Total IV fluid infused: 500 Progress Note Anesthesia document: Postop Eval 1 completed: Yes 01/08/25 1027 <Electronically signed by Yudelka mondragon CRNA> Date _ Yudelka Palm CRNA Cosigner Signature: Date CC: ~ Signed [facility] Work Phone: Consult note Author Yudelka [facility] Note Date/Time January 08, 2025 11:1 1am [facility] Medical Records Department [address] [place] [address] Anesthesia Postop Eval II 01/08/25 1053 MR#: [id number] Acct: [id number] Name: JUNE BECERRA Rep #:[id number] : 1975 49 From: Yudelka Palm CRNA PCP: YVONNE Cárdenas [place] [facility] [place] C Location: [place] [address] Anesthesia Postop Eval I Sum Postop Eval Completion status Anesthesia document: Postop Eval 1 completed: Yes Anesthesia Postop Eval I Summary Anesthesia Postop Eval I Summary: Anesthesia Postop Eval I: Assessment Summary Airway patent Yes 01/08/25 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 Spontaneous unlabored Yes 01/08/25 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 respirations Mental status nausea No 01/08/25 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 Vomiting No 01/08/25 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 Anesthesia Postop Eval I: Fluid Summary Crystalloid volume administer 500 01/08/25 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 (ml) Colloids volume administered ( ml) Blood Product volume administered (ml) Total IV fluid infused 500 01/08/25 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 Anesthesia Postop Eval I: Summary Notes Anesthesia Complication No 01/08/25 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 Anesthesia Complication Comment: Post-operative progress note Anesthesia: Postop Eval II Evaluation Mental status: Awake Pain Level: 0 nausea: No Vomiting: No 01/08/25 1053 <Electronically signed by Yudelka mondragon CRNA> Date _ Yudelka Palm CRNA Cosigner Signature: Date CC: ~ Signed [facility] Work Phone: evaluation note* Diagnosis Encounter for screening mammogram for malignant neoplasm of breast- Primary Other screening mammogram documented in this encounter [facility] noteNo assessment information [facility] Work Phone: Evaluation note* Diagnosis Encounter for gynecological examination (general) (routine) without abnormal findings- Primary Encounter for screening mammogram for breast cancer Dense breast tissue Postmenopausal bleeding Family history of malignant neoplasm of breast Family history of ovarian cancer Family history of malignant neoplasm of ovary [facility] Post[facility] Diagnosis Thickened endometrium- Primary Nonspecific (abnormal) findings on radiological and other examination of genitourinary organs Endometrial polyp Polyp of corpus uteri Postmenopausal bleeding [facility] Diagnosis Encounter for gynecological examination (general) (routine) without abnormal findings- Primary Encounter for screening mammogram for breast cancer Family history of ovarian cancer Family history of malignant neoplasm of ovary Family history of breast cancer Family history of malignant neoplasm of breast Postmenopausal Asymptomatic postmenopausal status (age-related) (natural) [facility] Diagnosis Encounter for screening mammogram for breast cancer Dense breast tissue [facility] Diagnosis Mass of left breast, unspecified quadrant [facility] Author Chapo Summers [facility] Note Date/Time January 08, 2025 10:0 1am [facility] Medical Records Department [address] [place] [address] History & Physical Exam 01/08/25 1000 MR#: [id number] Acct: [id number] Name: JUNE BECERRA Rep #:[id number] : 1975 49 From: Chapo gudino MD PCP: YVONNE Cárdenas Status:[facility] Location: [place] [address] HPI - General HPI Narrative JUNE BECERRA, is a 49 F who presents for screening colonoscopy. Patient has never had a colonoscopy in the past. She denies abdominal pain or blood in the stool. She has no family history of colon cancer. [facility] Medical History Loss of hearing Post-menopausal History of ulceration Gastric reflux Non-smoker Anxiety Migraine headache History of hiatal hernia GERD (gastroesophageal reflux disease) Leg cramps Endometrial polyp COVID-19 Hypertension Home Medications ?Medication ?Instructions ?Recorded ?Last Taken ?Type clonazepam 0.5 mg tablet 0.5 mg PO QHS PRN PRN Anxiet y 10/27/14 10/26/14 History lisinopril 10 mg tablet 20 mg PO DAILY 10/27/1412/14 History sumatriptan succinate 100 mg 100 mg PO .X1 PRN 5 10/27/14 History tablet (Imitrex) omeprazole 20 mg capsule,delayed 20 mg PO DAILY 01/08/25 History release berberine chloride 500 mg capsule 500 mg PO DAILY 12/1401/06/25 History cholecalciferol (vitamin D3) 125 125 mcg PO DAILY 12/1401/07/25 History mcg (5,000 unit) tablet (Vitamin D3) cyanocobalamin (B12)-cobamamide 1 bob sublingual DAILY 01/04/25 01/07/25 History 5,000 mcg-100 mcg sublingual lozenge (B12) hydrochlorothiazide 12.5 mg tablet 12.5 mg PO QHS 12/1401/07/25 History potassium chloride 20 mEq oral 20 meq PO DAILY 5 01/05/25 History packet (Klor-Con) vitamin K2 100 mcg capsule 100 mcg PO DAILY 01/04/25 0 01/07/25 History zinc acetate 50 mg (zinc) capsule 50 mg PO DAILY 01/0401/07/25 History Allergy/AdvReac Type Severity Reaction Status Date / Time No Known Allergies Allergy Verified 01/08/25 09:04 Family History Other Cancer Surgical History History of myringotomy History of oophorectomy H/O mastoidectomy History of tonsillectomy and adenoidectomy Social History Smoking Status: Never smoker Past Medical/Surgical History Planned Operation Planned Operative Procedure(s): COLONOSCOPY Previous Hospitalizations/Surgeries HX Hospitalizations: No Any Problems With Anesthesia: No You/Your Family Experience Fever (Hyperthermia) With Anes: No Cholinesterase deficiency: No Cardiovascular Hx of Irregular Heartbeat and/or Afib: No Hx Heart Attack: No Hx Congestive Heart Failure: No Hx Hypertension: Yes (PER PT, CONTROLLED ON MEDS) Hx Pacemaker: No Respiratory Hx Chronic Obstructive Pulmonary Disease (COPD): No Hx Asthma: No Hx Emphysema: No Hx Sleep Apnea: No Hx Respiratory Tract Infection/Cold (presently): No Do You Snore Loudly (louder than talking or can be heard): No Do You Often Feel Tired/ Fatigued/ Sleepy Dring Daytime?: No Has Anyone Observed You Stop Breathing During Sleep?: No Result (for STOP score): Negative Smoking Status: Never smoker Gastrointestinal Hx Ulcer: No Difficulty Chewing/Swallowing: No Neurological Hx Seizures: No Hx Head/Neck Injury: No Hx Headaches: No Hx Back Injury/Pain: No Does patient have nerve stimulator: No Reproduction : No Psycho/Social Hx Anxiety: Yes Miscellaneous Recent Exposure to Contagious Disease: No Allergies No Known Allergies Allergy (Verified 01/08/25 09:04) Discharge Is Pt Admitted From a Senior Care, or a Alf: No Who Could Help: After D/C, Where Do you Plan to Go: Return Home Vital Signs Vital Signs Vital Signs: 01/08/25 09:05 01/08/25 09:05 01/08/25 09:30 Temperature 97.5 F L 97.5 F L Temperature Source Temporal Pulse Rate 74 74 Respiratory Rate 18 18 Respiratory Pattern Normal Blood Pressure 104/55 L 104/55 L Blood Pressure Mean 71 Blood Pressure Source Monitor Blood Pressure Position Semi-Fowlers Blood Pressure Location Left Arm Pulse Ox 100 100 Oxygen Delivery Method Room Air Room Air Weight Weight: 189 lb 9.561 oz Body Mass Index (BMI) 30.6 Physical Exam Const alert and oriented x3 HEENT normocephalic Eyes PERRL Resp normal respiratory effort and normal air movement Cardio regular rate and regular rhythm GI soft to palpation, non-tender and non-distended Extremity normal to inspection Assessment & Plan Assessment/Plan (1) Screen for colon cancer: PLAN: I explained endoscopy in detail to the patient. I explained the risks including but not limited to stroke or heart attack with anesthesia, perforationof the GI tract, bleeding, infection. I explained that any of these could necessitate further emergency surgery. The patient understands and all questions were answered sufficiently. The patient wishes to proceed with procedure. Chapo Summers MD Pager: [facility] [address] [place] [address], [address] [place] [address] Office: Surgery Risks - Colonoscopy Risks Include but are not Limited To: Risks include but are not limited to: Bleeding, perforation requiring further surgery, inability to complete colonoscopy requiring barium enema. 01/08/25 1001 <Electronically signed by Chapo Summers MD> Cosigner Signature (if applicable): CC: YVONNE Loyola; Dr. Chapo Summers MD~ Signed [facility] Work Phone: Reason for referral (narrative)* Diagnostic Procedure Only (Routine) - Pending Review Specialty Diagnoses / Procedures Referred By Contgibson t Referred To Contact [facility] Diagnoses Encounter for screening mammogram for malignant neoplasm of breast Procedures JOSE A SCREENING SCREENING MAMMOGRAPHY BI 2-VIEW BREAST INC CAD Tianna Ko APRN.CNM [address] [place] [address] [facility] [address] [place] [address] Referral ID Status Reason Start Date Expiration Date Visits Requested Visits Authorized [id number] Pending Review Auto-Generat ed Referral 11/13/2022 12/12/2023 1 1 [facility] for referral (narrative)* Diagnostic Procedure Only (Routine) - Authorized Specialty Diagnoses / Procedures Referred By Munira oates Referred To Contact [facility] Diagnoses Postmenopausal bleeding Procedures PELVIC US I US PELVIC NONOBSTETRIC REAL-TIME IMAGE COMPLETE Tianna Ko APRN.CNAriela [address] [place] [address] [facility] [address] [place] [address] Referral ID Status Reason Start Date Expiration Date Visits Requested Visits Authorized [id number] Authorized Auto-Generat ed Referral 12/28/2022 12/28/2023 1 1 * Diagnostic Procedure Only (Routine) - Authorized Specialty Diagnoses / Procedures Referred By Munira oates Referred To Contact [facility] Diagnoses Encounter for screening mammogram for breast cancer Dense breast tissue Procedures JOSE A SCREENING W ELINOR SCREENING DIGITAL BREAST TOMOSYNTHESIS BI SCREENING MAMMOGRAPHY BI 2-VIEW BREAST INC Tianna Pacheco APRN.CNM [address] [place] [address] [facility] [address] [place] [address] Referral ID Status Reason Start Date Expiration Date Visits Requested Visits Authorized [id number] Authorized Auto-Generat ed Referral 12/28/2022 01/27/2024 1 1 [facility] for referral (narrative)* Diagnostic Procedure Only (Routine) - Authorized Specialty Diagnoses / Procedures Referred By Munira oates Referred To Contact [facility] Diagnoses Encounter for screening mammogram for breast cancer Procedures JOSE A SCREENING W ELINOR SCREENING DIGITAL BREAST TOMOSYNTHESIS BI SCREENING MAMMOGRAPHY BI 2-VIEW BREAST INC CAD Tianna Ko APRN.CNM [address] [place] [address] [facility] [address] [place] [address] Referral ID Status Reason Start Date Expiration Date Visits Requested Visits Authorized [id number] Authorized Auto-Generat ed Referral 01/17/2024 02/15/2025 1 1 [facility] for referral (narrative)* Diagnostic Procedure Only (Routine) - Closed Specialty Diagnoses / Procedures Referred By Munira oates Referred To Contact [facility] Diagnoses Mass of left breast, unspecified quadrant Procedures US BREAST LTD LEFT US BREAST UNI REAL TIME WITH IMAGE LIMITED Tianna Ko APRN.CNM [address] [place] [address] [facility] [address] [place] [address] Referral ID Status Reason Start Date Expiration Date V isits Requested Visits Authorized [id number] Closed Auto-Generate d Referral 01/21/2024 02/19/2025 1 1 [facility] for referral (narrative)No reason for referral information availableWOur [facility] of [facility] Work Phone: Reason for visit Narrative* Diagnostic Procedure Only (Routine) - Closed Specialty Diagnoses / Procedures Referred By Munira oates Referred To Contact [facility] Diagnoses Encounter for screening mammogram for breast cancer Dense breast tissue Procedures JOSE A SCREENING W ELINOR SCREENING DIGITAL BREAST TOMOSYNTHESIS BI SCREENING MAMMOGRAPHY BI 2-VIEW BREAST INC CAD Tianna Ko APRN.CNM [address] [place] [address] [facility] [address] [place] [address] Referral ID Status Reason Start Date Expiration Date V isits Requested Visits Authorized [id number] Closed Auto-Generate d Referral 12/28/2022 01/27/2024 1 1 [facility] Summary Purpose Family History Relationship Condition Age at Onset Recorded Date/T vazquez Not Specified Malignant neoplasm Unknown Advance Directives Advance Directive Response Recorded Date/ Time Living Will No October 27, 2014 1:30pm Power of Tablet Making Machine Operator Helper No October 27 1:30pm Advance Directive Response Recorded Date/ Time Do you have a Healthcare Power of Tablet Making Machine Operator Helper? No January 04, 2025 11:06am Chief Complaint and Reason for Visit Reason for Visit Admit Date Screen for colon cancer January 08, 2025 8:44am Additional Source Comments INFORMATION SOURCE (unrecogn ized section and content) DATE CREATED AUTHOR 01/10/2018 [facility] DATE CREATED AUTHOR AUTHOR'S ORGANIZ ATION 02/27/[address] [facility] DATE CREATED AUTHOR AUTHOR'S ORGANIZ ATION 01/08/2025 [facility] Source Comments (unrecognize d section and content) In the event this informatio n is protected by the Federal Confidentiality of Alcohol and Drug Abuse Patient Records regulations: The Federal rules restrict any use of the information to criminally investigate or prosecute any alcohol or drug abuse patient.[facility] the event this information is protected by the Federal Confidentiality of Alcohol and Drug Abuse Patient Records regulations: The Federal rules restrict any use of the information to criminally investigate or prosecute any alcohol or drug abuse patient.[facility] Hospital[facility] the event this information is protected by the Federal Confidentiality of Alcohol and Drug Abuse Patient Records regulations: The Federal rules restrict any use of the information to criminally investigate or prosecute any alcohol or drug abuse patient.[facility] Hospital[facility] the event this information is protected by the Federal Confidentiality of Alcohol and Drug Abuse Patient Records regulations: The Federal rules restrict any use of the information to criminally investigate or prosecute any alcohol or drug abuse patient.[facility] Hospital[facility] the event this information is protected by the Federal Confidentiality of Alcohol and Drug Abuse Patient Records regulations: The Federal rules restrict any use of the information to criminally investigate or prosecute any alcohol or drug abuse patient.[facility] HospitalIn the event this information is protected by the Federal Confidentiality of Alcohol and Drug Abuse Patient Records regulations: The Federal rules restrict any use of the information to criminally investigate or prosecute any alcohol or drug abuse patient.[facility] Hospital[facility] the event this information is protected by the Federal Confidentiality of Alcohol and Drug Abuse Patient Records regulations: The Federal rules restrict any use of the information to criminally investigate or prosecute any alcohol or drug abuse patient.[facility] HospitalIn the event this information is protected by the Federal Confidentiality of Alcohol and Drug Abuse Patient Records regulations: The Federal rules restrict any use of the information to criminally investigate or prosecute any alcohol or drug abuse patient.[facility] Hospital[facility] the event this information is protected by the Federal Confidentiality of Alcohol and Drug Abuse Patient Records regulations: The Federal rules restrict any use of the information to criminally investigate or prosecute any alcohol or drug abuse patient.[facility] Hospital[facility] the event this information is protected by the Federal Confidentiality of Alcohol and Drug Abuse Patient Records regulations: The Federal rules restrict any use of the information to criminally investigate or prosecute any alcohol or drug abuse patient.[facility] Teams (unrecognized sec tion and content) Rooming House Keeper Relationship Specialty Start Date End Date Harry Bella MD [address] [place], [place] [id number] PCP - General Family Medicine 02/23/19 Team Status: Active Member Role Status Dates Dr. Harry Bella MD Family Provider Active YVONNE Cárdenas Primary Care Provider Active Team Status: Inactive Member Role Status Dates YVONNE Cárdenas Primary Care Provide r, Attending Provider, Referring Provider Active Rooming House Keeper Relationship Specialty Start Date End Date Harry Bella MD [address] [place], [place] [id number] PCP - General Family Medicine 02/23/19 Rooming House Keeper Relationship Specialty Start Date End Date Harry Bella MD [address] [place], [place] [id number] PCP - General Family Medicine 02/23/19 Rooming House Keeper Relationship Specialty Start Date End Date Harry Bella MD [address] [place], [place] [id number] PCP - General Family Medicine 02/23/19 Rooming House Keeper Relationship Specialty Start Date End Date Harry Bella MD [address] [place] [address] PCP - General Family Medicine 02/23/19 Rooming House Keeper Relationship Specialty Start Date End Date Harry Bella MD [address] [place], [place] [id number] PCP - General Family Medicine 02/23/19 Rooming House Keeper Relationship Specialty Start Date End Date Harry Bella MD [address] [place] [address] PCP - General Family Medicine 02/23/19 Rooming House Keeper Relationship Specialty Start Date End Date Harry Bella MD [address] [place] [address] PCP - General Family Medicine 02/23/19 Rooming House Keeper Relationship Specialty Start Date End Date Harry Bella MD [address] [place] [address] PCP - General Family Medicine 02/23/19 Rooming House Keeper Relationship Specialty Start Date End Date Harry Bella MD [address] [place] [address] PCP - General Family Medicine 02/23/19 Team Status: Active Member Role/Relationship Status Dates YVONNE Cárdenas Primary Care Provider Active Team Status: Inactive Member Role/Relationship Status Dates YVONNE Cárdenas Primary Care Provider Active Start: January 08, 2025 End: January 08, 2025 YVONNE Cárdenas Referring Provider Active St art: January 08, 2025 End: January 08, 2025 Dr. Chapo Summers MD Attending Provider Active Start: January 08, 2025 End: January 08, 2025 Team Status: Active Member Role/Relationship Status Dates YVONNE Cárdenas Primary Care Provider Active Start: January 08, 2025 YVONNE Cárdenas Referring Provider Active St art: January 08, 2025 Dr. Chapo Summers MD Attending Provider Active Start: January 08, 2025 Dr. Chapo Summers MD Other Provider Active Start: January 08, 2025 Goals (unrecognized section and content) Goals may be documented in a n alternate section Reason for Visit (unrecogniz ed section and content) Reason Comments Yearly Exam Reason Comments DUB Specialty Diagnoses / Procedures Referred By Contac t Referred To Contact [facility] Diagnoses Postmenopausal bleeding Procedures PELVIC US WHI US PELVIC NONOBSTETRIC REAL-TIME IMAGE COMPLETE Tianna Ko APRN.CNM [address] [place] [address] [facility] [address] [place] [address] Referral ID Status Reason Start Date Expiration Date V isits Requested Visits Authorized [id number] Closed Auto-Generate d Referral 12/28/2022 12/28/2023 1 1 Reason Comments Results Reason Comments Well Woman Reason Comments Radiology US Specialty Diagnoses / Procedures Referred By Contac t Referred To Contact [facility] Diagnoses Mass of left breast, unspecified quadrant Procedures US BREAST LTD LEFT US BREAST UNI REAL TIME WITH IMAGE LIMITED Tianna Ko APRN.CNAriela [address] [place] [address] [facility] [address] [place] [address] Referral ID Status Reason Start Date Expiration Date V isits Requested Visits Authorized [id number] Closed Auto-Generate d Referral 01/21/2024 02/19/2025 1 1 FOR RECORDS PERTAINING TO PATIENTS WHO ARE OR HAVE BEEN ENROLLED IN A CHEMICAL DEPENDENCY/SUBSTANCEABUSE PROGRAM, SOME INFORMATION MAY BE OMITTED. This clinical summary was aggregated from multiple sources. Caution should be exercised in using it in the provision of clinical care. This summary normalizes information from multiple sources, and as a consequence, information in this document may materially change the coding, format and clinical context of patient data. In addition, data may be omitted in some cases. CLINICAL DECISIONS SHOULD BE BASED ON THE PRIMARY CLINICAL RECORDS. [employer] provides no warranty or guarantee of the accuracy or completeness of information in this document.
== END 2025-01-08 11:11 | disposition home or self-care (01) ==
LOC: EN 08:44 → AC 08:46
PROVIDERS: PCP Nurse Practitioner Family; Referring Provider Nurse Practitioner Family; Visit Provider Surgery
PROC: 0DJD8ZZ Inspection of Lower Intestinal Tract, Via Natural or Artificial Opening Endoscopic (ICD-10-PCS; CPT 45378; principal; 2025-01-08 09:40)
DX: Z12.11 Encounter for screening for malignant neoplasm of colon (principal); K21.9 Gastro-esophageal reflux disease without esophagitis; Z86.16 Personal history of COVID-19; I10 Essential (primary) hypertension
CPT/HCPCS: 45378; J2405